=== PATIENT | female | born 1950 | race African-American/Black ===

== ENCOUNTER 2016-12-06 04:38 | Emergency (ER) | payer MEDICAID ==
[~2016-12-06] VITALS: Ht 154.9 cm; Wt 62.0 kg
[~2016-12-06 04:38] MED LIST: AMLO2.5T45 PO; CLON0.1T PO; DIPH25CA83 PO; FAMO40TA35 PO; MONT10TA21 PO; P20 PO; TRIA15OI8 TP
[2016-12-06] MEDS ORDERED: HYDROCODONE/ACETAMINOPHEN 5/325MG TABLET PO ONE (06:30)
[2016-12-06 09:53] VITALS: BP 146/71
== END 2016-12-06 09:53 | disposition home or self-care (01) ==
LOC: ER 04:38
DX: G89.29 Other chronic pain (principal); M25.562 Pain in left knee; I10 Essential (primary) hypertension; M19.90 Unspecified osteoarthritis, unspecified site; I69.354 Hemiplegia and hemiparesis following cerebral infarction affecting left non-dominant side; Z88.0 Allergy status to penicillin; Z88.8 Allergy status to other drugs, medicaments and biological substances
CPT/HCPCS: 73562; 93971; 99284; Z7610

== ENCOUNTER 2017-01-23 08:24 | Emergency (ER) | payer MEDICAID ==
[~2017-01-23] VITALS: Ht 154.9 cm; Wt 59.0 kg
[~2017-01-23 08:24] MED LIST changes: -FAMO40TA35 PO; +FAMO40TA70 PO
[2017-01-23] MEDS ORDERED: ACETAMINOPHEN 325MG TABLET PO ONE (11:15)
[2017-01-23 12:42] LABS: BASOPHILS % 0.6 % (0.0-2.0); EOSINOPHILS % 1.6 % (0.0-5.0); HEMATOCRIT. 40.3 % (36.0-48.0); HEMOGLOBIN. 13.7 g/dL (12.0-16.0); LYMPHOCYTES % 50.3 % (20.0-50.0); MEAN CORPUSCULAR HEMOGLOBIN 33.5 pg (28.0-32.0); MEAN CORPUSCULAR VOLUME 98.6 fL (81.0-99.0); MEAN PLATELET VOLUME 9.5 fl (7.4-10.4); MONOCYTES % 6.3 % (2.0-8.0); NEUTROPHILS % 41.2 % (40.0-76.0); PLATELET 174 x1000/uL (130-400); RED BLOOD CELL COUNT 4.09 mill/uL (4.2-5.4); RED CELL DISTRIBUTION WIDTH 14.4 % (11.6-14.6)
[2017-01-23 12:50] LABS: CARBON DIOXIDE 33 mEq/L (21-32); CHLORIDE 101 mEq/L (98-107)
[2017-01-23] MEDS ORDERED: CLONIDINE 0.2MG TABLET PO ONE (14:00)
[2017-01-23] MEDS ORDERED: POTASSIUM CHLORIDE 20MEQ TABLET SR PO ONE (14:30)
[2017-01-23] MEDS ORDERED: HYDRALAZINE HCL 50MG TABLET PO ONE (15:15)
[2017-01-23 16:08] VITALS: BP 165/89
== END 2017-01-23 16:11 | disposition home or self-care (01) ==
LOC: ER 08:37
DX: M25.562 Pain in left knee (principal); E87.6 Hypokalemia; I10 Essential (primary) hypertension; F17.200 Nicotine dependence, unspecified, uncomplicated; Z86.73 Personal history of transient ischemic attack (TIA), and cerebral infarction without residual deficits; Z88.0 Allergy status to penicillin; Z88.1 Allergy status to other antibiotic agents
CPT/HCPCS: 36415; 70450; 73562; 80048; 85025; 99285; Z7610

== ENCOUNTER 2017-10-27 17:14 | Emergency (ER) | payer MEDICARE, MEDICAID ==
[~2017-10-27] VITALS: Ht 154.9 cm; Wt 59.0 kg
[2017-10-27 23:26] VITALS: BP 158/68
== END 2017-10-27 23:52 | disposition home or self-care (01) ==
LOC: ER 23:22
DX: L03.113 Cellulitis of right upper limb (principal); F41.9 Anxiety disorder, unspecified; K21.9 Gastro-esophageal reflux disease without esophagitis; I11.0 Hypertensive heart disease with heart failure; I50.9 Heart failure, unspecified; F17.200 Nicotine dependence, unspecified, uncomplicated; J32.9 Chronic sinusitis, unspecified; Z88.0 Allergy status to penicillin; Z88.3 Allergy status to other anti-infective agents; Z88.8 Allergy status to other drugs, medicaments and biological substances
CPT/HCPCS: 99283

== ENCOUNTER 2018-04-09 23:39 | Inpatient (IN) | payer OTHER, MEDICAID ==
[~2018-04-09] VITALS: Ht 162.6 cm; Wt 68.5 kg
[2018-04-10] MEDS ORDERED: EPINEPHRINE 1:1000 1 MG/ML AMP INJ ONE (00:15)
[2018-04-10] MEDS ORDERED: SODIUM CHLORIDE 0.9% 1,000 ML IV ONE (00:15)
[2018-04-10] MEDS ORDERED: METHYLPREDNISOLONE SOD SUCC 125 MG/2 ML VIAL IV ONE (00:15)
[2018-04-10] MEDS ORDERED: FAMOTIDINE 20MG/2ML VIAL IV ONE (00:15)
[2018-04-10] MEDS ORDERED: DIPHENHYDRAMINE 50MG CAPSULE PO ONE (00:15)
[2018-04-10 00:48] LABS: HEMATOCRIT 39.9 % (36.0-48.0); HEMOGLOBIN 13.5 g/dL (12.0-16.0); MEAN CORPUSCULAR HEMOGLOBIN 33.8 pg (28.0-32.0); MEAN CORPUSCULAR VOLUME 99.9 fL (81.0-99.0); PLATELET 179 x1000/uL (130-400); RED BLOOD CELL COUNT 3.99 mill/uL (4.2-5.4); RED CELL DISTRIBUTION WIDTH 13.9 % (11.6-14.6)
[2018-04-10 02:14] LABS: CHLORIDE 107 mEq/L (98-107)
[2018-04-10] MEDS ORDERED: POTASSIUM CHLORIDE INJ 40 MEQ in DEXT 5% WATER 250 ML IV ONE (03:00)
[2018-04-10] MEDS ORDERED: KCL 10MEQ/50ML PREMIX 50 ML IV ONE (03:15)
[2018-04-10] MEDS: KCL 10MEQ/50ML PREMIX 50 ML IV SCH ×4 (03:32→06:15)
[2018-04-10] MEDS ORDERED: POTASSIUM CHLORIDE 20MEQ TABLET SR PO ONE (04:45)
[2018-04-10] MEDS ORDERED: TRAMADOL 50MG TABLET PO PRN (12:00)
[2018-04-10 18:36] VITALS: BP 191/94
[2018-04-10] MEDS ORDERED: AMLO5TAB4 PO (18:43)
[2018-04-10] MEDS ORDERED: DIPHENHYDRAMINE 50MG/ML VIAL IV PRN (19:00)
[2018-04-10] MEDS ORDERED: ENOXAPARIN 30MG/0.3ML SYR SUBCUT SCH (19:00)
[2018-04-10] MEDS ORDERED: ASPIRIN 81MG TABLET PO SCH (19:30)
[2018-04-10] MEDS ORDERED: ENOXAPARIN 40MG/0.4ML SYR SUBCUT SCH (20:00)
[2018-04-10 20:13] VITALS: BP 167/82
[2018-04-10] MEDS ORDERED: KCL 20MEQ/100ML PREMIX 100 ML IV NR (21:00)
[2018-04-10] MEDS: METOPROLOL TARTRATE 50MG TABLET PO SCH (21:00)
[2018-04-10] MEDS: ASPIRIN 81MG TABLET PO SCH (21:29)
[2018-04-10] MEDS: PANTOPRAZOLE 40MG DR TABLET PO SCH (21:29)
[2018-04-10] MEDS: HYDRALAZINE HCL 50MG TABLET PO SCH (21:32)
[2018-04-10] MEDS ORDERED: POTASSIUM CHLORIDE 20MEQ TABLET SR PO NR (23:30)
[2018-04-11] VITALS: BP 160/80
[2018-04-11] MEDS: HYDRALAZINE HCL 50MG TABLET PO SCH (00:02)
[2018-04-11] MEDS: METOPROLOL TARTRATE 50MG TABLET PO SCH ×2 (00:32→10:29)
[2018-04-11] MEDS ORDERED: POTASSIUM CHLORIDE 20MEQ TABLET SR PO SCH (02:51)
[2018-04-11 04:00] VITALS: BP 173/90
[2018-04-11 08:00] VITALS: BP 175/88
[2018-04-11 10:03] LABS: BASOPHILS % 0.3 % (0.0-2.0); EOSINOPHILS % 0.6 % (0.0-5.0); HEMATOCRIT. 38.8 % (36.0-48.0); HEMOGLOBIN. 12.9 g/dL (12.0-16.0); LYMPHOCYTES % 37.1 % (20.0-50.0); MEAN CORPUSCULAR HEMOGLOBIN 33.5 pg (28.0-32.0); MEAN CORPUSCULAR VOLUME 100.6 fL (81.0-99.0); MEAN PLATELET VOLUME 9.9 fl (7.4-10.4); MONOCYTES % 5.4 % (2.0-8.0); NEUTROPHILS % 56.6 % (40.0-76.0); PLATELET 189 x1000/uL (130-400); RED BLOOD CELL COUNT 3.85 mill/uL (4.2-5.4)
[2018-04-11 10:26] LABS: CHLORIDE 111 mEq/L (98-107)
[2018-04-11] MEDS: ASPIRIN 81MG TABLET PO SCH (10:29)
[2018-04-11] MEDS: PANTOPRAZOLE 40MG DR TABLET PO SCH (10:29)
[2018-04-11 10:41] LABS: LDL CHOLESTEROL 88 mg/dL (5-100)
[2018-04-11 10:43] LABS: HDL CHOLESTEROL 61 mg/dL (40-59)
[2018-04-11 12:24] VITALS: BP 144/82
[2018-04-11] MEDS ORDERED: HYDRALAZINE HCL 100MG TABLET PO SCH (14:00)
[2018-04-11 14:33] VITALS: BP 144/82
== END 2018-04-11 15:55 | disposition home or self-care (01) | DRG 915 ==
LOC: ER 23:39 → 6WST 04-10 01:41 → ENRESERV 04-10 16:49 → 6WST 04-10 18:08
PROVIDERS: ADMIT Internal Medicine; ATTEND Internal Medicine
DX: T78.3XXA Angioneurotic edema, initial encounter (principal); I50.33 Acute on chronic diastolic (congestive) heart failure; R00.1 Bradycardia, unspecified; E78.00 Pure hypercholesterolemia, unspecified; E78.5 Hyperlipidemia, unspecified; R73.9 Hyperglycemia, unspecified; E87.6 Hypokalemia; I11.0 Hypertensive heart disease with heart failure; Z88.9 Allergy status to unspecified drugs, medicaments and biological substances; Z93.0 Tracheostomy status; Z86.73 Personal history of transient ischemic attack (TIA), and cerebral infarction without residual deficits; Z88.8 Allergy status to other drugs, medicaments and biological substances; Z88.0 Allergy status to penicillin; Z79.899 Other long term (current) drug therapy; R06.03 Acute respiratory distress
CPT/HCPCS: 36415; 80061; 85027; 96361; 96374; 96375; 99291; C1893; J1650; J2930; J3480; J3490; J7030; Q0163

== ENCOUNTER 2018-04-18 23:41 | Emergency (ER) | payer OTHER, MEDICAID ==
[~2018-04-18] VITALS: Ht 154.9 cm; Wt 60.0 kg
[~2018-04-18 23:41] MED LIST changes: -AMLO2.5T45 PO; +AMLO5TAB4 PO; -CLON0.1T PO; -P20 PO
[2018-04-19] MEDS ORDERED: PREDNISONE 20MG TABLET PO ONE (02:15)
[2018-04-19 04:41] VITALS: BP 111/69
== END 2018-04-19 06:48 | disposition home or self-care (01) ==
LOC: ER 23:41
DX: R21 Rash and other nonspecific skin eruption (principal); I10 Essential (primary) hypertension; F17.200 Nicotine dependence, unspecified, uncomplicated; Z93.0 Tracheostomy status; Z88.0 Allergy status to penicillin; Z88.8 Allergy status to other drugs, medicaments and biological substances; Z88.1 Allergy status to other antibiotic agents; Z88.9 Allergy status to unspecified drugs, medicaments and biological substances; Z79.899 Other long term (current) drug therapy
CPT/HCPCS: 99283; J7512

== ENCOUNTER 2018-04-27 23:52 | Emergency (ER) | payer MEDICAID, OTHER ==
[~2018-04-27] VITALS: Ht 154.9 cm; Wt 60.0 kg
[2018-04-28] MEDS ORDERED: FAMOTIDINE 20MG/2ML VIAL IV ONE (00:45)
[2018-04-28] MEDS ORDERED: DIPHENHYDRAMINE 50MG/ML VIAL IV ONE (00:45)
[2018-04-28] MEDS ORDERED: METHYLPREDNISOLONE SOD SUCC 125 MG/2 ML VIAL IV ONE (00:45)
[2018-04-28 03:00] VITALS: BP 177/90
== END 2018-04-28 03:25 | disposition home or self-care (01) ==
LOC: ER 23:52
DX: R22.0 Localized swelling, mass and lump, head (principal); T46.1X5A Adverse effect of calcium-channel blockers, initial encounter; Y92.098 Other place in other non-institutional residence as the place of occurrence of the external cause; I10 Essential (primary) hypertension; Z88.8 Allergy status to other drugs, medicaments and biological substances
CPT/HCPCS: 96374; 96375; 99284; J1200; J2930; J3490

== ENCOUNTER 2018-04-29 13:39 | Inpatient (IN) | payer OTHER, MEDICAID ==
[2018-04-28 21:45] VITALS: BP 117/78
[2018-04-29] VITALS: BP 172/90
[~2018-04-29] VITALS: Ht 162.6 cm; Wt 62.6 kg
[2018-04-29 16:11] LABS: BASOPHILS % 0.3 % (0.0-2.0); HEMATOCRIT. 36.5 % (36.0-48.0); HEMOGLOBIN. 12.2 g/dL (12.0-16.0); LYMPHOCYTES % 10.5 % (20.0-50.0); MEAN CORPUSCULAR HEMOGLOBIN 33.4 pg (28.0-32.0); MEAN CORPUSCULAR VOLUME 99.7 fL (81.0-99.0); MONOCYTES % 3.5 % (2.0-8.0); NEUTROPHILS % 85.7 % (40.0-76.0); PLATELET 280 x1000/uL (130-400); RED BLOOD CELL COUNT 3.66 mill/uL (4.2-5.4); RED CELL DISTRIBUTION WIDTH 13.6 % (11.6-14.6)
[2018-04-29 16:14] LABS: CHLORIDE 101 mEq/L (98-107)
[2018-04-29 16:19] LABS: PROTHROMBIN TIME 10.2 sec (9.1-11.1)
[2018-04-29 16:20] LABS: ETHANOL BLOOD < 10 mg/dL
[2018-04-29] MEDS ORDERED: ASPIRIN 325MG TABLET PO ONE (17:30)
[2018-04-29] MEDS ORDERED: GUAIFENESIN 200MG/10ML SUGAR FREE UDC PO PRN (20:00)
[2018-04-29] MEDS ORDERED: ONDANSETRON HCL 4MG/2ML INJ IV PRN (20:00)
[2018-04-29] MEDS ORDERED: MAGNESIUM/ALUMINUM HYDROXIDE/SIMETHICONE 30ML UDC PO PRN (20:00)
[2018-04-29] MEDS ORDERED: ACETAMINOPHEN 325MG TABLET PO PRN (20:00)
[2018-04-29] MEDS ORDERED: ACETAMINOPHEN 650MG SUPP PR PRN (20:00)
[2018-04-29] MEDS ORDERED: NA PHOS,M-B/NA PHOS,DI-BA ENEMA 118ML PR PRN (20:00)
[2018-04-29] MEDS ORDERED: DIPHENHYDRAMINE 50MG/ML VIAL IV PRN (20:00)
[2018-04-29] MEDS ORDERED: LORAZEPAM 1MG TABLET PO PRN (20:00)
[2018-04-29] MEDS ORDERED: IPRATROPIUM/ALBUTEROL 0.5-3(2.5)MG/3ML NEB INH PRN (20:00)
[2018-04-29 22:00] VITALS: BP 117/78
[2018-04-29] MEDS: NICOTINE 21MG PATCH TD SCH (23:45)
[2018-04-29] MEDS: AMLODIPINE 5MG TABLET PO SCH (23:45)
[2018-04-29] MEDS: ENOXAPARIN 40MG/0.4ML SYR SUBCUT SCH (23:45)
[2018-04-30 04:00] VITALS: BP 172/85
[2018-04-30] MEDS: CLONIDINE 0.1MG TABLET PO PRN (05:37)
[2018-04-30 07:49] LABS: BASOPHILS % 0.2 % (0.0-2.0); EOSINOPHILS % 0.5 % (0.0-5.0); HEMATOCRIT. 34.6 % (36.0-48.0); HEMOGLOBIN. 11.7 g/dL (12.0-16.0); MEAN CORPUSCULAR HEMOGLOBIN 33.7 pg (28.0-32.0); MEAN CORPUSCULAR VOLUME 99.5 fL (81.0-99.0); MEAN PLATELET VOLUME 8.8 fl (7.4-10.4); MONOCYTES % 7.9 % (2.0-8.0); NEUTROPHILS % 52.4 % (40.0-76.0); PLATELET 266 x1000/uL (130-400); RED BLOOD CELL COUNT 3.48 mill/uL (4.2-5.4); RED CELL DISTRIBUTION WIDTH 13.9 % (11.6-14.6)
[2018-04-30 08:00] VITALS: BP 158/85
[2018-04-30] MEDS: DOCUSATE SODIUM 100MG CAPSULE PO PRN (09:11)
[2018-04-30] MEDS: AMLODIPINE 5MG TABLET PO SCH (09:11)
[2018-04-30] MEDS: ASPIRIN 81MG EC TABLET PO SCH (09:11)
[2018-04-30] MEDS: NICOTINE 21MG PATCH TD SCH (09:12)
[2018-04-30 11:15] LABS: CHLORIDE 103 mEq/L (98-107)
[2018-04-30 12:00] VITALS: BP 113/74
[2018-04-30 16:00] VITALS: BP 150/74
[2018-04-30] MEDS ORDERED: LOSARTAN POTASSIUM 50 MG TABLET PO SCH (18:45)
[2018-04-30 20:00] VITALS: BP 186/78
[2018-04-30] MEDS: HYDRALAZINE HCL 50MG TABLET PO SCH (20:32)
[2018-04-30] MEDS: ENOXAPARIN 40MG/0.4ML SYR SUBCUT SCH (20:32)
[2018-04-30] MEDS: ATORVASTATIN CALCIUM 20MG TABLET PO SCH (20:32)
[2018-05-01] VITALS: BP 161/84
[2018-05-01] MEDS: CLONIDINE 0.1MG TABLET PO PRN (00:45)
[2018-05-01 04:00] VITALS: BP 140/77
[2018-05-01 05:59] LABS: *BARBITURATES SCREEN URINE NEGATIVE (NEGATIVE); CANNABINOID URINE SCREEN NEGATIVE (NEGATIVE); OPIATES URINE SCREEN PRESUMTIVE POSITIVE (NEGATIVE); PHENCYCLIDINE URINE SCREEN NEGATIVE (NEGATIVE)
[2018-05-01 06:00] LABS: *AMPHETAMINES SCREEN URINE NEGATIVE (NEGATIVE); *BENZODIAZEPINES SCREEN URINE NEGATIVE (NEGATIVE); *COCAINE SCREEN URINE NEGATIVE (NEGATIVE)
[2018-05-01 06:28] LABS: METHADONE URINE SCREEN PRESUMTIVE POSITIVE (NEGATIVE)
[2018-05-01 08:00] VITALS: BP 156/87
[2018-05-01] MEDS: ASPIRIN 81MG EC TABLET PO SCH (09:26)
[2018-05-01] MEDS: NICOTINE 21MG PATCH TD SCH (09:27)
[2018-05-01] MEDS: AMLODIPINE 5MG TABLET PO SCH (09:27)
[2018-05-01] MEDS: HYDRALAZINE HCL 50MG TABLET PO SCH ×2 (09:28→21:21)
[2018-05-01] MEDS: DOCUSATE SODIUM 100MG CAPSULE PO PRN (09:29)
[2018-05-01] MEDS: HYDROCODONE/ACETAMINOPHEN 5/325MG TABLET PO PRN ×2 (09:45→21:20)
[2018-05-01 12:00] VITALS: BP 139/70
[2018-05-01 16:00] VITALS: BP 146/68
[2018-05-01 20:00] VITALS: BP 132/85
[2018-05-01] MEDS: ATORVASTATIN CALCIUM 20MG TABLET PO SCH (21:21)
[2018-05-01] MEDS: ENOXAPARIN 40MG/0.4ML SYR SUBCUT SCH (21:21)
[2018-05-02] VITALS: BP 157/77
[2018-05-02] MEDS ORDERED: POTASSIUM CHLORIDE 10MEQ TABLET SR PO NR (01:30)
[2018-05-02 04:00] VITALS: BP 166/89
[2018-05-02] MEDS: CLONIDINE 0.1MG TABLET PO PRN (06:31)
[2018-05-02 06:47] LABS: CHLORIDE 106 mEq/L (98-107)
[2018-05-02 08:00] VITALS: BP 149/77
[2018-05-02] MEDS: HYDRALAZINE HCL 50MG TABLET PO SCH (10:20)
[2018-05-02] MEDS: DOCUSATE SODIUM 100MG CAPSULE PO PRN (10:21)
[2018-05-02] MEDS: ASPIRIN 81MG EC TABLET PO SCH (10:21)
[2018-05-02] MEDS: AMLODIPINE 5MG TABLET PO SCH (10:22)
[2018-05-02] MEDS: NICOTINE 21MG PATCH TD SCH (10:22)
[2018-05-02 12:32] VITALS: BP 162/85
[2018-05-02] MEDS ORDERED: METHADONE HCL 10MG TABLET PO SCH (15:30)
== END 2018-05-02 15:50 | disposition left against medical advice (07) | DRG 64 ==
LOC: ER 13:39 → 7WST 17:43 → EDBEDREQ 17:46 → SUPCPDRO 19:49 → ENRESERV 20:00
PROVIDERS: ADMIT Internal Medicine; ATTEND Internal Medicine
DX: I63.81 Other cerebral infarction due to occlusion or stenosis of small artery (principal); I50.33 Acute on chronic diastolic (congestive) heart failure; I69.354 Hemiplegia and hemiparesis following cerebral infarction affecting left non-dominant side; E78.00 Pure hypercholesterolemia, unspecified; E78.5 Hyperlipidemia, unspecified; F17.210 Nicotine dependence, cigarettes, uncomplicated; I11.0 Hypertensive heart disease with heart failure; I16.0 Hypertensive urgency; I65.21 Occlusion and stenosis of right carotid artery; Z53.21 Procedure and treatment not carried out due to patient leaving prior to being seen by health care provider; Z88.8 Allergy status to other drugs, medicaments and biological substances; Z88.0 Allergy status to penicillin
CPT/HCPCS: 36415; 70551; 71045; 73560; 73590; 80061; 80305; 82962; 84484; 92610; 93005; 93880; 93970; 97116; 97162; 99285; G0482; J1650; A4315

== ENCOUNTER 2018-05-02 18:17 | Inpatient (IN) | payer OTHER, MEDICAID ==
[~2018-05-02] VITALS: Ht 193 cm; Wt 61.2 kg
[~2018-05-02 18:17] MED LIST changes: +ETOMIDATE 2MG/ML 10ML VIAL IV ONE; +SUCCINYLCHOLINE CHLORIDE 200MG/10ML IV ONE
[2018-05-02] MEDS ORDERED: SODIUM CHLORIDE 0.9% 1,000 ML IV SCH (18:24)
[2018-05-02] MEDS ORDERED: SUCCINYLCHOLINE CHLORIDE 200MG/10ML IV ONE (18:30)
[2018-05-02] MEDS ORDERED: ETOMIDATE 2MG/ML 10ML VIAL IV ONE ×2 (18:30)
[2018-05-02] MEDS ORDERED: DIPHENHYDRAMINE 50MG CAPSULE PO ONE (18:30)
[2018-05-02] MEDS ORDERED: LORAZEPAM 2MG/ML CPJ IV ONE ×3 (18:30→19:45)
[2018-05-02] MEDS ORDERED: FAMOTIDINE 20MG/2ML VIAL IV ONE (18:30)
[2018-05-02] MEDS ORDERED: METHYLPREDNISOLONE SOD SUCC 125 MG/2 ML VIAL IV ONE (18:30)
[2018-05-02] MEDS ORDERED: PROPOFOL 10MG/ML 100ML 100 ML IV ONE ×3 (18:30→22:30)
[2018-05-02] MEDS ORDERED: LORAZEPAM 2MG/ML CPJ ONE (19:02)
[2018-05-02] MEDS ORDERED: MIDAZOLAM HCL 50 MG in DEXTROSE 5% WATER 40 ML IV ONE (19:45)
[2018-05-02 20:13] LABS: BG BASE EXCESS 1.5 mmol/L (-2.0-2.0); BG CARBOXYHEMOGLOBIN 2.4 % (0.5-1.5); BG DEOXYHEMOGLOBIN 5.7 % (0.0-5.0); BG FRACTION INSPIRED OXYGEN 40; BG HCO3 ACT 24.1 mmol/L (22.0-26.0); BG METHEMOGLOBIN 0.5 % (0.0-1.5); BG OXYGEN SATURATION 94.1 % (92.0-98.5); BG OXYHEMOGLOBIN 91.4 % (94.0-97.0); BG PCO2 32.3 mmHg (35.0-45.0); BG PH 7.491 (7.350-7.450); BG PO2 72.7 mmHg (75.0-100.0); BG SAMPLE SITE LEFT BRACHIAL; BG TIDAL VOLUME(mL) 500 mL; BG TOTAL HEMOGLOBIN 13.9 g/dL (12.0-18.0); BG VENT MODE VENT - A/C; BG VENT RATE 16 set
[2018-05-02 21:01] LABS: BASOPHILS % 0.1 % (0.0-2.0); EOSINOPHILS % 0.3 % (0.0-5.0); HEMATOCRIT. 38.2 % (36.0-48.0); HEMOGLOBIN. 12.7 g/dL (12.0-16.0); LYMPHOCYTES % 9.2 % (20.0-50.0); MEAN CORPUSCULAR HEMOGLOBIN 33.1 pg (28.0-32.0); MEAN CORPUSCULAR VOLUME 99.5 fL (81.0-99.0); MEAN PLATELET VOLUME 8.5 fl (7.4-10.4); MONOCYTES % 3.3 % (2.0-8.0); NEUTROPHILS % 87.1 % (40.0-76.0); PLATELET 265 x1000/uL (130-400); RED BLOOD CELL COUNT 3.84 mill/uL (4.2-5.4); RED CELL DISTRIBUTION WIDTH 13.9 % (11.6-14.6)
[2018-05-02 21:05] LABS: CHLORIDE 103 mEq/L (98-107)
[2018-05-02 21:08] LABS: CLARITY URINE CLEAR (CLEAR); COLOR URINE YELLOW (YELLOW); KETONES URINE NEGATIVE (NEGATIVE); LEUKOCYTE ESTERASE URINE NEGATIVE (NEGATIVE); NITRITE URINE NEGATIVE (NEGATIVE); OCCULT BLOOD URINE NEGATIVE (NEGATIVE); PH URINE 7.5 (4.5-8.0); PROTEIN URINE 1+ (NEGATIVE); SPECIFIC GRAVITY URINE 1.019 (1.005-1.030); UROBILINOGEN URINE 0.2 E.U./dL (0.2-1.0)
[2018-05-02 21:08] LABS: D-DIMER 2.81 mg/L FEU (<0.50); PROTHROMBIN TIME 10.4 sec (9.1-11.1)
[2018-05-02] MEDS ORDERED: SODIUM CHLORIDE 0.9% 1,000 ML IV ONE (21:28)
[2018-05-02] MEDS ORDERED: DIPHENHYDRAMINE 50MG/ML VIAL IV ONE (21:30)
[2018-05-03] VITALS (76 sets, daily range): BP systolic 100–190; BP diastolic 62–107
[2018-05-03] MEDS ORDERED: LORAZEPAM 2MG/ML CPJ IV PRN (03:45)
[2018-05-03] MEDS ORDERED: DIPHENHYDRAMINE 50MG CAPSULE PO SCH (03:45)
[2018-05-03] MEDS ORDERED: LEVOFLOXACIN 500MG PREMIX 100 ML IV SCH (03:45)
[2018-05-03] MEDS ORDERED: IPRATROPIUM/ALBUTEROL 0.5-3(2.5)MG/3ML NEB INH PRN (03:45)
[2018-05-03] MEDS ORDERED: ACETAMINOPHEN 325MG TABLET PO PRN (03:45)
[2018-05-03] MEDS: DIPHENHYDRAMINE 25MG CAPSULE PO SCH ×4 (04:22→21:28)
[2018-05-03] MEDS: AMLODIPINE 10MG TABLET PO SCH ×2 (04:50→09:32)
[2018-05-03] MEDS: LEVOFLOXACIN 500MG PREMIX 100 ML IV SCH (06:00)
[2018-05-03] MEDS: DEXT 5%/0.45% NACL KCL 20MEQ/L 1,000 ML IV SCH ×2 (06:00→13:51)
[2018-05-03] MEDS: METHYLPREDNISOLONE SOD SUCC 125 MG/2 ML VIAL IV SCH ×3 (06:00→21:28)
[2018-05-03 06:56] LABS: BASOPHILS % 0.4 % (0.0-2.0); EOSINOPHILS % 0.1 % (0.0-5.0); HEMATOCRIT. 38.4 % (36.0-48.0); HEMOGLOBIN. 12.8 g/dL (12.0-16.0); LYMPHOCYTES % 10.4 % (20.0-50.0); MEAN CORPUSCULAR HEMOGLOBIN 33.4 pg (28.0-32.0); MEAN CORPUSCULAR VOLUME 100.5 fL (81.0-99.0); MONOCYTES % 3.7 % (2.0-8.0); NEUTROPHILS % 85.4 % (40.0-76.0); RED BLOOD CELL COUNT 3.82 mill/uL (4.2-5.4); RED CELL DISTRIBUTION WIDTH 13.7 % (11.6-14.6)
[2018-05-03] MEDS: SODIUM CHLORIDE 0.9% INJ 3ML FLUSH IVF SCH ×3 (07:00→21:28)
[2018-05-03 07:39] LABS: CHLORIDE 107 mEq/L (98-107)
[2018-05-03 08:10] LABS: BG BASE EXCESS -0.1 mmol/L (-2.0-2.0); BG DEOXYHEMOGLOBIN 0.9 % (0.0-5.0); BG FRACTION INSPIRED OXYGEN 60; BG OXYGEN SATURATION 99.1 % (92.0-98.5); BG OXYHEMOGLOBIN 98.1 % (94.0-97.0); BG PCO2 37.3 mmHg (35.0-45.0); BG PH 7.426 (7.350-7.450); BG PO2 223.3 mmHg (75.0-100.0); BG SAMPLE SITE RIGHT RADIAL; BG TIDAL VOLUME(mL) 500 mL; BG TOTAL HEMOGLOBIN 12.7 g/dL (12.0-18.0); BG VENT MODE VENT - A/C; BG VENT RATE 12 set
[2018-05-03] MEDS: PROPOFOL 10MG/ML 100ML 100 ML IV PRN ×3 (09:32→21:27)
[2018-05-03] MEDS: FAMOTIDINE 20MG/2ML VIAL IV SCH ×2 (09:32→21:28)
[2018-05-03] MEDS: ENOXAPARIN 40MG/0.4ML SYR SUBCUT SCH (09:45)
[2018-05-03 12:27] LABS: MEAN PLATELET VOLUME 9.7 fl (7.4-10.4); PLATELET 212 x1000/uL (130-400)
[2018-05-03] MEDS ORDERED: CLONIDINE 0.1MG TABLET PO PRN (13:00)
[2018-05-03] MEDS: HYDRALAZINE 20MG/ML VIAL IV PRN ×2 (14:19→22:01)
[2018-05-03] MEDS ORDERED: DEXTROSE 50% WATER 50ML SYRINGE IV PRN (14:30)
[2018-05-03 15:35] LABS: *AMPHETAMINES SCREEN URINE NEGATIVE (NEGATIVE); *BARBITURATES SCREEN URINE NEGATIVE (NEGATIVE)
[2018-05-03 15:36] LABS: *BENZODIAZEPINES SCREEN URINE PRESUMTIVE POSITIVE (NEGATIVE); *COCAINE SCREEN URINE NEGATIVE (NEGATIVE); CANNABINOID URINE SCREEN NEGATIVE (NEGATIVE); OPIATES URINE SCREEN PRESUMTIVE POSITIVE (NEGATIVE); PHENCYCLIDINE URINE SCREEN NEGATIVE (NEGATIVE)
[2018-05-03 15:39] LABS: METHADONE URINE SCREEN PRESUMTIVE POSITIVE (NEGATIVE)
[2018-05-03] MEDS: ASPIRIN 81MG TABLET PO SCH (16:28)
[2018-05-03] MEDS: MONTELUKAST SODIUM 10MG TABLET PO SCH (16:29)
[2018-05-03] MEDS: BLOOD SUGAR DIAGNOSTIC STRIP TEST SCH ×2 (17:36→17:50)
[2018-05-03] MEDS: INSULIN LISPRO 100 UNITS/ML SUBCUT SCH ×2 (17:46→17:49)
[2018-05-03] MEDS: IPRATROPIUM/ALBUTEROL 0.5-3(2.5)MG/3ML NEB HHN SCH (20:00)
[2018-05-03] MEDS: ATORVASTATIN CALCIUM 10MG TABLET PO SCH (21:00)
[2018-05-04] VITALS (84 sets, daily range): BP systolic 87–154; BP diastolic 52–105
[2018-05-04] MEDS: BLOOD SUGAR DIAGNOSTIC STRIP TEST SCH ×4 (00:30→18:35)
[2018-05-04] MEDS: IPRATROPIUM/ALBUTEROL 0.5-3(2.5)MG/3ML NEB HHN SCH ×4 (01:38→19:55)
[2018-05-04] MEDS: PROPOFOL 10MG/ML 100ML 100 ML IV PRN ×4 (03:14→19:31)
[2018-05-04] MEDS: DIPHENHYDRAMINE 25MG CAPSULE PO SCH ×4 (04:21→20:52)
[2018-05-04 05:37] LABS: CHLORIDE 109 mEq/L (98-107); HEMATOCRIT 37.2 % (36.0-48.0); HEMOGLOBIN 12.4 g/dL (12.0-16.0); MEAN CORPUSCULAR HEMOGLOBIN 33.7 pg (28.0-32.0); PLATELET 219 x1000/uL (130-400); RED BLOOD CELL COUNT 3.69 mill/uL (4.2-5.4); RED CELL DISTRIBUTION WIDTH 14.1 % (11.6-14.6)
[2018-05-04] MEDS: INSULIN LISPRO 100 UNITS/ML SUBCUT SCH ×4 (06:00→18:00)
[2018-05-04] MEDS: METHYLPREDNISOLONE SOD SUCC 125 MG/2 ML VIAL IV SCH ×3 (06:04→20:52)
[2018-05-04] MEDS: LEVOFLOXACIN 500MG PREMIX 100 ML IV SCH (06:04)
[2018-05-04] MEDS: SODIUM CHLORIDE 0.9% INJ 3ML FLUSH IVF SCH ×3 (06:05→20:53)
[2018-05-04] MEDS: ENOXAPARIN 40MG/0.4ML SYR SUBCUT SCH (09:00)
[2018-05-04] MEDS: AMLODIPINE 10MG TABLET PO SCH (09:00)
[2018-05-04] MEDS: FAMOTIDINE 20MG/2ML VIAL IV SCH ×2 (09:05→20:52)
[2018-05-04] MEDS: ASPIRIN 81MG TABLET PO SCH (09:05)
[2018-05-04 09:17] LABS: BG BASE EXCESS -3.2 mmol/L (-2.0-2.0); BG CARBOXYHEMOGLOBIN 0.6 % (0.5-1.5); BG DEOXYHEMOGLOBIN 1.4 % (0.0-5.0); BG FRACTION INSPIRED OXYGEN 40; BG HCO3 ACT 19.8 mmol/L (22.0-26.0); BG METHEMOGLOBIN 0.3 % (0.0-1.5); BG OXYGEN SATURATION 98.6 % (92.0-98.5); BG OXYHEMOGLOBIN 97.7 % (94.0-97.0); BG PCO2 29.5 mmHg (35.0-45.0); BG PH 7.444 (7.350-7.450); BG PO2 125.3 mmHg (75.0-100.0); BG SAMPLE SITE RIGHT RADIAL; BG TIDAL VOLUME(mL) 500 mL; BG VENT MODE VENT - A/C; BG VENT RATE 12 set
[2018-05-04] MEDS: SODIUM CHLORIDE 0.45% 1,000 ML IV SCH (16:58)
[2018-05-04] MEDS: MONTELUKAST SODIUM 10MG TABLET PO SCH (16:58)
[2018-05-04] MEDS ORDERED: LORAZEPAM 2MG/ML CPJ IV PRN (19:45)
[2018-05-04] MEDS: ATORVASTATIN CALCIUM 10MG TABLET PO SCH (20:52)
[2018-05-05] VITALS (56 sets, daily range): BP systolic 99–182; BP diastolic 57–92
[2018-05-05] MEDS: IPRATROPIUM/ALBUTEROL 0.5-3(2.5)MG/3ML NEB HHN SCH ×4 (01:58→20:19)
[2018-05-05] MEDS: PROPOFOL 10MG/ML 100ML 100 ML IV PRN (03:18)
[2018-05-05] MEDS: DIPHENHYDRAMINE 25MG CAPSULE PO SCH ×4 (03:19→21:05)
[2018-05-05 05:23] LABS: HEMATOCRIT 37.4 % (36.0-48.0); HEMOGLOBIN 12.5 g/dL (12.0-16.0); MEAN CORPUSCULAR HEMOGLOBIN 33.4 pg (28.0-32.0); PLATELET 215 x1000/uL (130-400); RED BLOOD CELL COUNT 3.74 mill/uL (4.2-5.4)
[2018-05-05 05:24] LABS: CHLORIDE 108 mEq/L (98-107)
[2018-05-05] MEDS: SODIUM CHLORIDE 0.9% INJ 3ML FLUSH IVF SCH ×3 (05:44→21:11)
[2018-05-05] MEDS: INSULIN LISPRO 100 UNITS/ML SUBCUT SCH ×5 (05:56→23:35)
[2018-05-05] MEDS: BLOOD SUGAR DIAGNOSTIC STRIP TEST SCH ×5 (05:56→23:34)
[2018-05-05] MEDS: LEVOFLOXACIN 500MG PREMIX 100 ML IV SCH (05:57)
[2018-05-05] MEDS: METHYLPREDNISOLONE SOD SUCC 125 MG/2 ML VIAL IV SCH ×3 (05:57→23:33)
[2018-05-05 08:41] LABS: BG BASE EXCESS -2.9 mmol/L (-2.0-2.0); BG CARBOXYHEMOGLOBIN 0.6 % (0.5-1.5); BG FRACTION INSPIRED OXYGEN 35; BG HCO3 ACT 19.7 mmol/L (22.0-26.0); BG METHEMOGLOBIN 0.2 % (0.0-1.5); BG OXYHEMOGLOBIN 95.2 % (94.0-97.0); BG PCO2 28.5 mmHg (35.0-45.0); BG PH 7.457 (7.350-7.450); BG PO2 80.4 mmHg (75.0-100.0); BG SAMPLE SITE RIGHT RADIAL; BG TIDAL VOLUME(mL) 500 mL; BG TOTAL HEMOGLOBIN 13.9 g/dL (12.0-18.0); BG VENT MODE VENT - A/C; BG VENT RATE 12 set
[2018-05-05] MEDS: AMLODIPINE 10MG TABLET PO SCH (08:55)
[2018-05-05] MEDS: ASPIRIN 81MG TABLET PO SCH (08:55)
[2018-05-05] MEDS: FAMOTIDINE 20MG/2ML VIAL IV SCH ×2 (08:55→21:04)
[2018-05-05] MEDS: ENOXAPARIN 40MG/0.4ML SYR SUBCUT SCH (08:56)
[2018-05-05] MEDS: HYDROMORPHONE HCL/PF 2MG/ML CPJ IV PRN ×2 (11:12→13:38)
[2018-05-05 12:13] LABS: BG BASE EXCESS -1.8 mmol/L (-2.0-2.0); BG CARBOXYHEMOGLOBIN 0.4 % (0.5-1.5); BG DEOXYHEMOGLOBIN 4.2 % (0.0-5.0); BG FRACTION INSPIRED OXYGEN 35; BG HCO3 ACT 21.2 mmol/L (22.0-26.0); BG METHEMOGLOBIN 0.3 % (0.0-1.5); BG OXYGEN SATURATION 95.8 % (92.0-98.5); BG OXYHEMOGLOBIN 95.1 % (94.0-97.0); BG PCO2 30.9 mmHg (35.0-45.0); BG PH 7.454 (7.350-7.450); BG PO2 80.9 mmHg (75.0-100.0); BG PRESSURE SUPPORT 8; BG SAMPLE SITE RIGHT RADIAL; BG TOTAL HEMOGLOBIN 13.3 g/dL (12.0-18.0); BG VENT MODE VENT - CPAP
[2018-05-05] MEDS: SODIUM CHLORIDE 0.45% 1,000 ML IV SCH (13:38)
[2018-05-05] MEDS: MONTELUKAST SODIUM 10MG TABLET PO SCH (16:05)
[2018-05-05] MEDS: ATORVASTATIN CALCIUM 10MG TABLET PO SCH (21:04)
[2018-05-06] VITALS (53 sets, daily range): BP systolic 133–180; BP diastolic 70–108
[2018-05-06] MEDS: IPRATROPIUM/ALBUTEROL 0.5-3(2.5)MG/3ML NEB HHN SCH ×3 (01:55→14:00)
[2018-05-06] MEDS: DIPHENHYDRAMINE 25MG CAPSULE PO SCH ×2 (04:15→09:52)
[2018-05-06 04:36] LABS: HEMATOCRIT 42.2 % (36.0-48.0); MEAN CORPUSCULAR VOLUME 99.8 fL (81.0-99.0); PLATELET 205 x1000/uL (130-400); RED BLOOD CELL COUNT 4.23 mill/uL (4.2-5.4); RED CELL DISTRIBUTION WIDTH 13.9 % (11.6-14.6)
[2018-05-06 04:51] LABS: CHLORIDE 106 mEq/L (98-107)
[2018-05-06] MEDS: METHYLPREDNISOLONE SOD SUCC 125 MG/2 ML VIAL IV SCH (05:39)
[2018-05-06] MEDS: BLOOD SUGAR DIAGNOSTIC STRIP TEST SCH ×2 (05:39→11:41)
[2018-05-06] MEDS: LEVOFLOXACIN 500MG PREMIX 100 ML IV SCH (05:39)
[2018-05-06] MEDS: SODIUM CHLORIDE 0.9% INJ 3ML FLUSH IVF SCH (05:39)
[2018-05-06] MEDS: INSULIN LISPRO 100 UNITS/ML SUBCUT SCH ×2 (05:40→11:51)
[2018-05-06] MEDS: ASPIRIN 81MG TABLET PO SCH (08:12)
[2018-05-06] MEDS: AMLODIPINE 10MG TABLET PO SCH (08:13)
[2018-05-06] MEDS: ENOXAPARIN 40MG/0.4ML SYR SUBCUT SCH (08:13)
[2018-05-06] MEDS: FAMOTIDINE 20MG/2ML VIAL IV SCH (08:13)
[2018-05-06 08:38] LABS: BG CARBOXYHEMOGLOBIN 0.6 % (0.5-1.5); BG DEOXYHEMOGLOBIN 3.9 % (0.0-5.0); BG FRACTION INSPIRED OXYGEN 32; BG HCO3 ACT 20.9 mmol/L (22.0-26.0); BG METHEMOGLOBIN 0.2 % (0.0-1.5); BG OXYGEN SATURATION 96.1 % (92.0-98.5); BG OXYHEMOGLOBIN 95.3 % (94.0-97.0); BG PCO2 30.8 mmHg (35.0-45.0); BG PO2 84.1 mmHg (75.0-100.0); BG SAMPLE SITE RIGHT RADIAL; BG TOTAL HEMOGLOBIN 13.9 g/dL (12.0-18.0); BG VENT MODE NASAL CANNULA
[2018-05-06] MEDS ORDERED: HYDROMORPHONE HCL/PF 2MG/ML CPJ IV PRN (11:45)
[2018-05-06] MEDS ORDERED: LORAZEPAM 2MG/ML CPJ IV PRN (11:45)
[2018-05-06] MEDS: MONTELUKAST SODIUM 10MG TABLET PO SCH (17:28)
[2018-05-06] MEDS ORDERED: METHYLPREDNISOLONE SOD SUCC 40 MG/ML VIAL IV SCH (18:00)
[2018-05-06] MEDS ORDERED: DIPHENHYDRAMINE 25MG CAPSULE PO SCH (22:00)
== END 2018-05-06 18:10 | disposition home or self-care (01) | DRG 208 ==
LOC: ER 18:17 → MICUSO 19:15 → ENRESERV 05-03 01:01 → 7WST 05-06 13:57
PROVIDERS: ADMIT Internal Medicine; ATTEND Internal Medicine
PROC: 5A1945Z Respiratory Ventilation, 24-96 Consecutive Hours (ICD-10-PCS; principal; 2018-05-02)
PROC: 0BH17EZ Insertion of Endotracheal Airway into Trachea, Via Natural or Artificial Opening (ICD-10-PCS; 2018-05-02)
PROC: 30233L1 Transfusion of Nonautologous Fresh Plasma into Peripheral Vein, Percutaneous Approach (ICD-10-PCS; 2018-05-03)
PROC: 30233K1 Transfusion of Nonautologous Frozen Plasma into Peripheral Vein, Percutaneous Approach (ICD-10-PCS; 2018-05-03)
DX: J96.00 Acute respiratory failure, unspecified whether with hypoxia or hypercapnia (principal); I50.33 Acute on chronic diastolic (congestive) heart failure; J18.9 Pneumonia, unspecified organism; I69.354 Hemiplegia and hemiparesis following cerebral infarction affecting left non-dominant side; T78.3XXA Angioneurotic edema, initial encounter; E78.5 Hyperlipidemia, unspecified; E78.00 Pure hypercholesterolemia, unspecified; F11.90 Opioid use, unspecified, uncomplicated; R73.9 Hyperglycemia, unspecified; T44.5X5A Adverse effect of predominantly beta-adrenoreceptor agonists, initial encounter; F17.200 Nicotine dependence, unspecified, uncomplicated; I11.0 Hypertensive heart disease with heart failure; T38.0X5A Adverse effect of glucocorticoids and synthetic analogues, initial encounter; Z91.19 Patient's noncompliance with other medical treatment and regimen; Y92.89 Other specified places as the place of occurrence of the external cause
CPT/HCPCS: 31500; 36415; 36430; 36556; 36600; 71045; 80048; 80305; 82375; 82805; 82962; 84478; 84484; 85027; 85379; 86850; 86900; 86927; 87070; 93005; 94002; 94003; 94640; 97162; 99291; J0330; J0360; J1170; J1200; J1650; J1815; J1956; J2060; J2250; J2704; J2920; J2930; J3490; J7030; J7050; J7060; J7620; P9017; Q0163; A4315

== ENCOUNTER 2018-05-23 14:14 | Inpatient (IN) | payer OTHER, MEDICAID ==
[~2018-05-23] VITALS: Ht 154.9 cm; Wt 57.6 kg
[~2018-05-23 14:14] MED LIST changes: -ETOMIDATE 2MG/ML 10ML VIAL IV ONE; -SUCCINYLCHOLINE CHLORIDE 200MG/10ML IV ONE
[2018-05-23 16:58] LABS: BASOPHILS % 0.2 % (0.0-2.0); EOSINOPHILS % 0.8 % (0.0-5.0); HEMATOCRIT. 34.3 % (36.0-48.0); HEMOGLOBIN. 11.3 g/dL (12.0-16.0); LYMPHOCYTES % 9.4 % (20.0-50.0); MEAN CORPUSCULAR HEMOGLOBIN 32.1 pg (28.0-32.0); MEAN CORPUSCULAR VOLUME 97.2 fL (81.0-99.0); MEAN PLATELET VOLUME 10.2 fl (7.4-10.4); MONOCYTES % 1.4 % (2.0-8.0); NEUTROPHILS % 88.2 % (40.0-76.0); PLATELET 222 x1000/uL (130-400); RED BLOOD CELL COUNT 3.53 mill/uL (4.2-5.4); RED CELL DISTRIBUTION WIDTH 14.7 % (11.6-14.6)
[2018-05-23 17:03] LABS: CHLORIDE 106 mEq/L (98-107)
[2018-05-23 17:12] LABS: CLARITY URINE CLEAR (CLEAR); COLOR URINE YELLOW (YELLOW); KETONES URINE NEGATIVE (NEGATIVE); LEUKOCYTE ESTERASE URINE NEGATIVE (NEGATIVE); NITRITE URINE NEGATIVE (NEGATIVE); OCCULT BLOOD URINE NEGATIVE (NEGATIVE); PH URINE 5.5 (4.5-8.0); PROTEIN URINE 1+ (NEGATIVE); SPECIFIC GRAVITY URINE 1.019 (1.005-1.030); UROBILINOGEN URINE 0.2 E.U./dL (0.2-1.0)
[2018-05-23] MEDS ORDERED: POTASSIUM CHLORIDE 20MEQ TABLET SR PO ONE (17:30)
[2018-05-23 17:44] LABS: *BARBITURATES SCREEN URINE NEGATIVE (NEGATIVE); *BENZODIAZEPINES SCREEN URINE NEGATIVE (NEGATIVE)
[2018-05-23 17:45] LABS: *AMPHETAMINES SCREEN URINE NEGATIVE (NEGATIVE); CANNABINOID URINE SCREEN NEGATIVE (NEGATIVE); OPIATES URINE SCREEN PRESUMTIVE POSITIVE (NEGATIVE); PHENCYCLIDINE URINE SCREEN NEGATIVE (NEGATIVE)
[2018-05-23 17:57] LABS: *COCAINE SCREEN URINE NEGATIVE (NEGATIVE)
[2018-05-23 18:31] LABS: METHADONE URINE SCREEN PRESUMTIVE POSITIVE (NEGATIVE)
[2018-05-23] MEDS ORDERED: MORPHINE SULFATE 4 MG/ML CPJ (NOT FOR IM USE) IV ONE (19:00)
[2018-05-24] VITALS (9 sets, daily range): BP systolic 110–165; BP diastolic 58–97
[2018-05-24] MEDS: HYDROCODONE/ACETAMINOPHEN 10/325MG TABLET PO PRN ×3 (02:33→17:12)
[2018-05-24] MEDS ORDERED: DIPHENHYDRAMINE 25MG CAPSULE PO PRN (06:00)
[2018-05-24] MEDS ORDERED: TRIAMCINOLONE ACETONIDE 0.5% OINT 15GM TOP PRN (06:00)
[2018-05-24] MEDS ORDERED: HYDROCODONE/ACETAMINOPHEN 10/325MG TABLET PO PRN (06:00)
[2018-05-24 07:38] LABS: BASOPHILS % 0.2 % (0.0-2.0); HEMOGLOBIN. 10.9 g/dL (12.0-16.0); LYMPHOCYTES % 7.4 % (20.0-50.0); MEAN CORPUSCULAR HEMOGLOBIN 32.2 pg (28.0-32.0); MEAN CORPUSCULAR VOLUME 97.7 fL (81.0-99.0); MEAN PLATELET VOLUME 10.3 fl (7.4-10.4); MONOCYTES % 1.8 % (2.0-8.0); NEUTROPHILS % 88.6 % (40.0-76.0); PLATELET 204 x1000/uL (130-400); RED BLOOD CELL COUNT 3.37 mill/uL (4.2-5.4); RED CELL DISTRIBUTION WIDTH 14.5 % (11.6-14.6)
[2018-05-24 07:44] LABS: CHLORIDE 109 mEq/L (98-107)
[2018-05-24] MEDS ORDERED: ENOXAPARIN 30MG/0.3ML SYR SUBCUT SCH (09:00)
[2018-05-24] MEDS ORDERED: ENOXAPARIN 40MG/0.4ML SYR SUBCUT SCH (09:00)
[2018-05-24] MEDS: FAMOTIDINE 20MG TABLET PO SCH (09:33)
[2018-05-24] MEDS: AMLODIPINE 5MG TABLET PO SCH (09:35)
[2018-05-24] MEDS ORDERED: FUROSEMIDE 40MG/4ML VIAL IVP NR (15:00)
[2018-05-24] MEDS ORDERED: POTASSIUM CHLORIDE 20MEQ TABLET SR PO NR (15:00)
[2018-05-24] MEDS ORDERED: LORAZEPAM 2MG/ML CPJ IV PRN (18:45)
[2018-05-24] MEDS ORDERED: HYDRALAZINE 20MG/ML VIAL IV PRN (18:45)
[2018-05-24] MEDS: MONTELUKAST SODIUM 10MG TABLET PO SCH (20:15)
[2018-05-24] MEDS: ATORVASTATIN CALCIUM 10MG TABLET PO SCH (20:15)
[2018-05-24 20:45] LABS: PROTHROMBIN TIME 10.3 sec (9.1-11.1)
[2018-05-25] VITALS (12 sets, daily range): BP systolic 126–156; BP diastolic 68–90
[2018-05-25] MEDS: HYDROCODONE/ACETAMINOPHEN 10/325MG TABLET PO PRN ×2 (01:08→09:50)
[2018-05-25 06:30] LABS: HEMATOCRIT 32.2 % (36.0-48.0); HEMOGLOBIN 10.7 g/dL (12.0-16.0); MEAN CORPUSCULAR HEMOGLOBIN 32.5 pg (28.0-32.0); MEAN CORPUSCULAR VOLUME 97.2 fL (81.0-99.0); PLATELET 203 x1000/uL (130-400); RED BLOOD CELL COUNT 3.31 mill/uL (4.2-5.4); RED CELL DISTRIBUTION WIDTH 14.9 % (11.6-14.6)
[2018-05-25 07:05] LABS: CHLORIDE 110 mEq/L (98-107)
[2018-05-25] MEDS: DOCUSATE SODIUM 100MG CAPSULE PO PRN (08:32)
[2018-05-25] MEDS: AMLODIPINE 5MG TABLET PO SCH (08:32)
[2018-05-25] MEDS: ASPIRIN 81MG TABLET PO SCH (08:32)
[2018-05-25] MEDS: ENOXAPARIN 40MG/0.4ML SYR SUBCUT SCH (08:32)
[2018-05-25] MEDS: FAMOTIDINE 20MG TABLET PO SCH (08:33)
[2018-05-25] MEDS ORDERED: FUROSEMIDE 40MG/4ML VIAL IVP SCH (14:00)
[2018-05-25 14:23] LABS: BG BASE EXCESS 4.4 mmol/L (-2.0-2.0); BG CARBOXYHEMOGLOBIN 0.3 % (0.5-1.5); BG DEOXYHEMOGLOBIN 6.4 % (0.0-5.0); BG FRACTION INSPIRED OXYGEN 21; BG HCO3 ACT 27.8 mmol/L (22.0-26.0); BG METHEMOGLOBIN 0.1 % (0.0-1.5); BG OXYGEN SATURATION 93.6 % (92.0-98.5); BG OXYHEMOGLOBIN 93.2 % (94.0-97.0); BG PH 7.494 (7.350-7.450); BG PO2 69.6 mmHg (75.0-100.0); BG SAMPLE SITE RIGHT RADIAL; BG TOTAL HEMOGLOBIN 11.3 g/dL (12.0-18.0); BG VENT MODE ROOM AIR
[2018-05-25] MEDS: LEVOFLOXACIN 500MG PREMIX 100 ML IV SCH (14:58)
[2018-05-25] MEDS ORDERED: POTASSIUM CHLORIDE 20MEQ TABLET SR PO NR (16:00)
[2018-05-25] MEDS: MONTELUKAST SODIUM 10MG TABLET PO SCH (23:18)
[2018-05-25] MEDS: ATORVASTATIN CALCIUM 10MG TABLET PO SCH (23:18)
[2018-05-26 04:00] VITALS: BP 144/73
[2018-05-26 07:33] LABS: HEMATOCRIT 32.8 % (36.0-48.0); HEMOGLOBIN 10.7 g/dL (12.0-16.0); MEAN CORPUSCULAR HEMOGLOBIN 31.8 pg (28.0-32.0); MEAN CORPUSCULAR VOLUME 97.2 fL (81.0-99.0); PLATELET 239 x1000/uL (130-400); RED BLOOD CELL COUNT 3.37 mill/uL (4.2-5.4); RED CELL DISTRIBUTION WIDTH 14.6 % (11.6-14.6)
[2018-05-26] MEDS: ASPIRIN 81MG TABLET PO SCH (08:26)
[2018-05-26] MEDS: DOCUSATE SODIUM 100MG CAPSULE PO PRN (08:26)
[2018-05-26] MEDS: FAMOTIDINE 20MG TABLET PO SCH (08:26)
[2018-05-26] MEDS: ENOXAPARIN 40MG/0.4ML SYR SUBCUT SCH (08:28)
[2018-05-26] MEDS: AMLODIPINE 5MG TABLET PO SCH (08:29)
[2018-05-26] MEDS: IPRATROPIUM/ALBUTEROL 0.5-3(2.5)MG/3ML NEB HHN SCH ×2 (08:34→11:37)
[2018-05-26] MEDS ORDERED: FUROSEMIDE 40MG/4ML VIAL IVP SCH (09:00)
[2018-05-26] MEDS ORDERED: POTASSIUM CHLORIDE 20MEQ TABLET SR PO SCH (09:00)
[2018-05-26 12:00] VITALS: BP 114/64
[2018-05-26] MEDS: LEVOFLOXACIN 500MG PREMIX 100 ML IV SCH (13:00)
== END 2018-05-26 14:24 | disposition left against medical advice (07) | DRG 280 ==
LOC: ER 14:14 → 3WST 17:39 → ENRESERV 05-24 03:56 → 7WST 05-26
PROVIDERS: ADMIT Internal Medicine; ATTEND Internal Medicine
DX: I21.4 Non-ST elevation (NSTEMI) myocardial infarction (principal); I50.33 Acute on chronic diastolic (congestive) heart failure; N17.9 Acute kidney failure, unspecified; J44.1 Chronic obstructive pulmonary disease with (acute) exacerbation; I69.354 Hemiplegia and hemiparesis following cerebral infarction affecting left non-dominant side; E87.2 Acidosis; I31.3 Pericardial effusion (noninflammatory); G93.40 Encephalopathy, unspecified; E44.1 Mild protein-calorie malnutrition; I11.0 Hypertensive heart disease with heart failure; E87.6 Hypokalemia; D64.9 Anemia, unspecified; E78.5 Hyperlipidemia, unspecified; E87.70 Fluid overload, unspecified; R06.03 Acute respiratory distress; E78.00 Pure hypercholesterolemia, unspecified; F17.210 Nicotine dependence, cigarettes, uncomplicated; Z88.8 Allergy status to other drugs, medicaments and biological substances; Z91.19 Patient's noncompliance with other medical treatment and regimen; Z88.1 Allergy status to other antibiotic agents; Z88.0 Allergy status to penicillin
CPT/HCPCS: 36415; 36600; 71045; 80048; 80305; 82375; 82805; 83605; 83735; 83880; 84484; 85027; 93005; 93306; 93970; 94640; 96372; 96374; 97162; 97166; 97530; 99285; J1650; J1940; J1956; J2060; J2270; J7050; J7620; Q0163

== ENCOUNTER 2018-07-31 14:44 | Inpatient (IN) | payer OTHER, MEDICAID ==
[~2018-07-31] VITALS: Ht 165.1 cm; Wt 65.8 kg
[2018-07-31] MEDS ORDERED: KETOROLAC 30MG/ML VIAL IV STA (16:29)
[2018-07-31] MEDS ORDERED: ONDANSETRON HCL 4MG/2ML INJ IV STA (16:29)
[2018-07-31] MEDS ORDERED: SODIUM CHLORIDE 0.9% 1,000 ML IV ONE (16:29)
[2018-07-31] MEDS ORDERED: MORPHINE SULFATE 4 MG/ML CPJ (NOT FOR IM USE) IV STA (16:29)
[2018-07-31] MEDS ORDERED: LEVOFLOXACIN 750MG PREMIX 150 ML IV ONE (16:30)
[2018-07-31] MEDS ORDERED: VANCOMYCIN 1 G PREMIX 200 ML IV ONE (16:30)
[2018-07-31 16:46] LABS: EOSINOPHILS % 2.4 % (0.0-5.0); HEMATOCRIT. 29.7 % (36.0-48.0); HEMOGLOBIN. 9.7 g/dL (12.0-16.0); LYMPHOCYTES % 29.5 % (20.0-50.0); MEAN CORPUSCULAR HEMOGLOBIN 30.8 pg (28.0-32.0); MEAN PLATELET VOLUME 9.4 fl (7.4-10.4); MONOCYTES % 6.8 % (2.0-8.0); NEUTROPHILS % 60.3 % (40.0-76.0); PLATELET 321 x1000/uL (130-400); RED BLOOD CELL COUNT 3.16 mill/uL (4.2-5.4); RED CELL DISTRIBUTION WIDTH 18.3 % (11.6-14.6)
[2018-07-31 16:52] LABS: CHLORIDE 107 mEq/L (98-107); INR 1.1; PROTHROMBIN TIME 10.6 sec (9.1-11.1)
[2018-07-31 18:56] LABS: CLARITY URINE CLEAR (CLEAR); COLOR URINE DARK YELLOW (YELLOW); KETONES URINE TRACE (NEGATIVE); LEUKOCYTE ESTERASE URINE NEGATIVE (NEGATIVE); NITRITE URINE NEGATIVE (NEGATIVE); OCCULT BLOOD URINE NEGATIVE (NEGATIVE); PROTEIN URINE NEGATIVE (NEGATIVE); SPECIFIC GRAVITY URINE 1.044 (1.005-1.030)
[2018-07-31] MEDS ORDERED: IOHEXOL-350 100 ML BOTTLE ONE (18:57)
[2018-07-31] MEDS ORDERED: LORAZEPAM 2MG/ML CPJ IV ONE (20:15)
[2018-07-31] MEDS: MORPHINE SULFATE 4 MG/ML CPJ (NOT FOR IM USE) IV PRN (22:02)
[2018-07-31 23:30] VITALS: BP 140/80
[2018-08-01] VITALS: BP 145/80
[2018-08-01] MEDS: MORPHINE SULFATE 4 MG/ML CPJ (NOT FOR IM USE) IV PRN ×5 (01:52→21:19)
[2018-08-01 04:00] VITALS: BP 146/73
[2018-08-01 08:00] VITALS: BP 141/72
[2018-08-01 12:00] VITALS: BP 138/79
[2018-08-01] MEDS ORDERED: HYDROCODONE/APAP 7.5/325MG 1 TAB TABLET PO PRN (13:45)
[2018-08-01] MEDS ORDERED: LIDOCAINE HCL 1% 20ML VIAL (Pyxis) INJ ONE (14:15)
[2018-08-01] MEDS ORDERED: IPRATROPIUM/ALBUTEROL 0.5-3(2.5)MG/3ML NEB INH PRN (14:30)
[2018-08-01] MEDS ORDERED: CLONIDINE 0.1MG TABLET PO PRN (14:30)
[2018-08-01] MEDS ORDERED: ONDANSETRON HCL 4MG/2ML INJ IV PRN (14:30)
[2018-08-01] MEDS ORDERED: ACETAMINOPHEN 325MG TABLET PO PRN (14:30)
[2018-08-01 16:00] VITALS: BP 127/78
[2018-08-01] MEDS: VANCOMYCIN 1 G PREMIX 200 ML IV SCH ×2 (17:31→17:38)
[2018-08-01] MEDS: ENOXAPARIN 40MG/0.4ML SYR SUBCUT SCH (17:38)
[2018-08-01] MEDS ORDERED: AZTREONAM 2 GM in DEXT 5% WATER 100 ML IV SCH (18:00)
[2018-08-01 20:00] VITALS: BP 148/74
[2018-08-01] MEDS: DIPHENHYDRAMINE 50MG/ML VIAL IV PRN (21:37)
[2018-08-01] MEDS ORDERED: TEMAZEPAM 15MG CAPSULE PO PRN (22:00)
[2018-08-01] MEDS: HYDROCODONE/APAP 7.5/325MG 1 TAB TABLET PO PRN (22:09)
[2018-08-01] MEDS: AZTREONAM 2 GM in DEXT 5% WATER 100 ML IV SCH (23:54)
[2018-08-02 00:07] VITALS: BP 134/73
[2018-08-02] MEDS: VANCOMYCIN 750 MG PREMIX 150 ML IV SCH ×2 (02:21→14:20)
[2018-08-02] MEDS: MORPHINE SULFATE 4 MG/ML CPJ (NOT FOR IM USE) IV PRN ×4 (02:22→19:28)
[2018-08-02] MEDS: DIPHENHYDRAMINE 50MG/ML VIAL IV PRN ×4 (03:12→23:27)
[2018-08-02 04:00] VITALS: BP 150/73
[2018-08-02] MEDS: HYDROCODONE/APAP 7.5/325MG 1 TAB TABLET PO PRN (05:58)
[2018-08-02 06:22] LABS: BASOPHILS % 0.4 % (0.0-2.0); EOSINOPHILS % 2.8 % (0.0-5.0); HEMATOCRIT. 30.2 % (36.0-48.0); HEMOGLOBIN. 9.8 g/dL (12.0-16.0); LYMPHOCYTES % 26.3 % (20.0-50.0); MEAN CORPUSCULAR HEMOGLOBIN 30.4 pg (28.0-32.0); MEAN CORPUSCULAR VOLUME 93.8 fL (81.0-99.0); MEAN PLATELET VOLUME 9.3 fl (7.4-10.4); MONOCYTES % 7.8 % (2.0-8.0); NEUTROPHILS % 62.7 % (40.0-76.0); PLATELET 349 x1000/uL (130-400); RED BLOOD CELL COUNT 3.22 mill/uL (4.2-5.4); RED CELL DISTRIBUTION WIDTH 18.3 % (11.6-14.6)
[2018-08-02 06:37] LABS: CHLORIDE 106 mEq/L (98-107)
[2018-08-02 07:03] LABS: LDL CHOLESTEROL 73 mg/dL (5-100)
[2018-08-02 07:04] LABS: CREATINE KINASE 54 IU/L (26-192)
[2018-08-02 07:05] LABS: HDL CHOLESTEROL 55 mg/dL (40-59)
[2018-08-02 07:06] LABS: T4 FREE 1.08 ng/dL (0.76-1.46)
[2018-08-02] MEDS ORDERED: SODIUM BICARBONATE 4% (2.4MEQ) 5ML VIAL IV ONE (07:41)
[2018-08-02] MEDS ORDERED: LIDOCAINE HCL 1% 20ML VIAL (Pyxis) INJ ONE (07:41)
[2018-08-02 08:00] VITALS: BP 161/53
[2018-08-02 12:00] VITALS: BP 137/64
[2018-08-02] MEDS: AZTREONAM 2 GM in DEXT 5% WATER 100 ML IV SCH (12:13)
[2018-08-02] MEDS ORDERED: TEMAZEPAM 15MG CAPSULE PO PRN (15:30)
[2018-08-02 16:00] VITALS: BP 122/64
[2018-08-02] MEDS ORDERED: LEVOFLOXACIN 500MG PREMIX 100 ML IV SCH (16:00)
[2018-08-02] MEDS: ENOXAPARIN 40MG/0.4ML SYR SUBCUT SCH (18:52)
[2018-08-02 20:00] VITALS: BP 152/62
[2018-08-02] MEDS: NITROFURANTOIN 100MG M/M CAPSULE PO SCH (21:07)
[2018-08-03] VITALS: BP 155/80
[2018-08-03] MEDS: MORPHINE SULFATE 4 MG/ML CPJ (NOT FOR IM USE) IV PRN ×3 (01:05→12:25)
[2018-08-03] MEDS: VANCOMYCIN 750 MG PREMIX 150 ML IV SCH ×2 (01:06→14:01)
[2018-08-03 04:00] VITALS: BP 166/96
[2018-08-03 07:21] LABS: CHLORIDE 106 mEq/L (98-107)
[2018-08-03 07:31] LABS: HEMATOCRIT 27.4 % (36.0-48.0); MEAN CORPUSCULAR VOLUME 93.8 fL (81.0-99.0); PLATELET 307 x1000/uL (130-400); RED BLOOD CELL COUNT 2.92 mill/uL (4.2-5.4)
[2018-08-03] MEDS: NITROFURANTOIN 100MG M/M CAPSULE PO SCH (07:33)
[2018-08-03] MEDS ORDERED: LEVOTHYROXINE SODIUM 25MCG TABLET PO SCH (07:40)
[2018-08-03] MEDS ORDERED: IOHEXOL-350 100 ML BOTTLE ONE (09:24)
[2018-08-03 12:00] VITALS: BP 149/89
[2018-08-03 16:00] VITALS: BP 139/76
[2018-08-04] MEDS ORDERED: NICOTINE 14MG PATCH TD SCH (09:00)
== END 2018-08-03 16:30 | disposition left against medical advice (07) | DRG 862 ==
LOC: ER 14:44 → 7WST 20:16 → EDBEDREQTM 20:20 → EDBEDREQSVC 20:20 → EDBEDREQ 20:20 → ENRESERV 21:35
PROVIDERS: ADMIT Internal Medicine; ATTEND Internal Medicine
PROC: 02HV33Z Insertion of Infusion Device into Superior Vena Cava, Percutaneous Approach (ICD-10-PCS; principal; 2018-08-02)
PROC: B518ZZA Fluoroscopy of Superior Vena Cava, Guidance (ICD-10-PCS; 2018-08-02)
PROC: B548ZZA Ultrasonography of Superior Vena Cava, Guidance (ICD-10-PCS; 2018-08-02)
DX: T81.49XA Infection following a procedure, other surgical site, initial encounter (principal); I50.33 Acute on chronic diastolic (congestive) heart failure; A41.9 Sepsis, unspecified organism; L03.115 Cellulitis of right lower limb; N39.0 Urinary tract infection, site not specified; I31.3 Pericardial effusion (noninflammatory); J44.1 Chronic obstructive pulmonary disease with (acute) exacerbation; G93.40 Encephalopathy, unspecified; T82.868A Thrombosis due to vascular prosthetic devices, implants and grafts, initial encounter; I69.354 Hemiplegia and hemiparesis following cerebral infarction affecting left non-dominant side; M86.8X7 Other osteomyelitis, ankle and foot; Y83.2 Surgical operation with anastomosis, bypass or graft as the cause of abnormal reaction of the patient, or of later complication, without mention of misadventure at the time of the procedure; T81.44XA Sepsis following a procedure, initial encounter; I73.9 Peripheral vascular disease, unspecified; D64.9 Anemia, unspecified; E78.5 Hyperlipidemia, unspecified; I11.0 Hypertensive heart disease with heart failure; E02 Subclinical iodine-deficiency hypothyroidism; L97.519 Non-pressure chronic ulcer of other part of right foot with unspecified severity; B96.20 Unspecified Escherichia coli [E. coli] as the cause of diseases classified elsewhere; F17.200 Nicotine dependence, unspecified, uncomplicated; K21.9 Gastro-esophageal reflux disease without esophagitis; F41.9 Anxiety disorder, unspecified; M19.90 Unspecified osteoarthritis, unspecified site; B96.89 Other specified bacterial agents as the cause of diseases classified elsewhere; B95.62 Methicillin resistant Staphylococcus aureus infection as the cause of diseases classified elsewhere; Y83.5 Amputation of limb(s) as the cause of abnormal reaction of the patient, or of later complication, without mention of misadventure at the time of the procedure; Y92.89 Other specified places as the place of occurrence of the external cause; Z91.19 Patient's noncompliance with other medical treatment and regimen; Z88.8 Allergy status to other drugs, medicaments and biological substances; Z88.1 Allergy status to other antibiotic agents; Z88.0 Allergy status to penicillin; Z87.440 Personal history of urinary (tract) infections
CPT/HCPCS: 36415; 36569; 36573; 71045; 73590; 73630; 75635; 80048; 80061; 80202; 82550; 83605; 83880; 84145; 84439; 84443; 84484; 85027; 87070; 87077; 87186; 93005; 96374; 96375; 99291; C1725; J1200; J1650; J1885; J1956; J2060; J2270; J2405; J3370; J3490; J7030; J7050; J7060; Q9967; A4315

== ENCOUNTER 2018-08-07 08:34 | Inpatient (IN) | payer OTHER, MEDICAID ==
[~2018-08-07] VITALS: Ht 154.9 cm; Wt 59.0 kg
[2018-08-07 09:25] LABS: BASOPHILS % 0.8 % (0.0-2.0); EOSINOPHILS % 1.3 % (0.0-5.0); HEMATOCRIT. 32.8 % (36.0-48.0); HEMOGLOBIN. 10.6 g/dL (12.0-16.0); LYMPHOCYTES % 23.4 % (20.0-50.0); MEAN CORPUSCULAR HEMOGLOBIN 30.6 pg (28.0-32.0); MEAN CORPUSCULAR VOLUME 94.2 fL (81.0-99.0); MEAN PLATELET VOLUME 8.6 fl (7.4-10.4); NEUTROPHILS % 67.5 % (40.0-76.0); PLATELET 384 x1000/uL (130-400); RED BLOOD CELL COUNT 3.48 mill/uL (4.2-5.4); RED CELL DISTRIBUTION WIDTH 18.2 % (11.6-14.6)
[2018-08-07 09:32] LABS: CHLORIDE 107 mEq/L (98-107)
[2018-08-07] MEDS ORDERED: HYDROCODONE/ACETAMINOPHEN 5/325MG TABLET PO ONE (10:15)
[2018-08-07] MEDS ORDERED: LEVOFLOXACIN 750MG PREMIX 150 ML IV ONE (10:45)
[2018-08-07 12:00] VITALS: BP 176/82
[2018-08-07 12:20] VITALS: BP 168/75
[2018-08-07] MEDS ORDERED: ACETAMINOPHEN 650MG/20.3ML UDC PO PRN (13:00)
[2018-08-07] MEDS ORDERED: TRAMADOL 50MG TABLET PO PRN ×2 (13:00→17:30)
[2018-08-07] MEDS: ENOXAPARIN 40MG/0.4ML SYR SUBCUT SCH (13:11)
[2018-08-07] MEDS ORDERED: CLONIDINE 0.1MG TABLET PO PRN (15:15)
[2018-08-07 16:00] VITALS: BP 148/76
[2018-08-07] MEDS ORDERED: VANCOMYCIN 1250MG in DEXTROSE 5% WATER 250ML IV NR (18:30)
[2018-08-07] MEDS: HYDROCODONE/ACETAMINOPHEN 10/325MG TABLET PO PRN (18:43)
[2018-08-07 20:00] VITALS: BP 165/91
[2018-08-07] MEDS ORDERED: GENTAMICIN 120MG PREMIX 100 ML IV NR (20:00)
[2018-08-07] MEDS: KETOROLAC 30MG/ML VIAL IV PRN (20:17)
[2018-08-07] MEDS: PREGABALIN 50 MG CAPSULE PO SCH (20:28)
[2018-08-07] MEDS ORDERED: TEMAZEPAM 15MG CAPSULE PO PRN (21:00)
[2018-08-08] VITALS: BP 160/86
[2018-08-08] MEDS: HYDROCODONE/ACETAMINOPHEN 10/325MG TABLET PO PRN ×4 (03:41→20:17)
[2018-08-08 04:00] VITALS: BP 152/85
[2018-08-08] MEDS: KETOROLAC 30MG/ML VIAL IV PRN ×3 (05:58→18:08)
[2018-08-08 08:00] VITALS: BP 147/74
[2018-08-08] MEDS ORDERED: GENTAMICIN SULFATE 60 MG in SODIUM CHLORIDE 0.9% 50 ML IV SCH (08:00)
[2018-08-08] MEDS: AMLODIPINE 10MG TABLET PO SCH (08:46)
[2018-08-08] MEDS: PREGABALIN 50 MG CAPSULE PO SCH ×2 (08:46→21:03)
[2018-08-08] MEDS: NICOTINE 14MG PATCH TD SCH (08:46)
[2018-08-08] MEDS ORDERED: LEVOFLOXACIN 250MG TABLET PO SCH (11:00)
[2018-08-08] MEDS: VANCOMYCIN 1 G PREMIX 200 ML IV SCH (11:54)
[2018-08-08 12:00] VITALS: BP 136/72
[2018-08-08] MEDS ORDERED: GABAPENTIN 100MG CAPSULE PO SCH (12:00)
[2018-08-08 12:30] LABS: HEMATOCRIT 28.7 % (36.0-48.0); HEMOGLOBIN 9.5 g/dL (12.0-16.0); MEAN CORPUSCULAR HEMOGLOBIN 31.1 pg (28.0-32.0); MEAN CORPUSCULAR VOLUME 93.8 fL (81.0-99.0); PLATELET 356 x1000/uL (130-400); RED BLOOD CELL COUNT 3.06 mill/uL (4.2-5.4); RED CELL DISTRIBUTION WIDTH 18.1 % (11.6-14.6)
[2018-08-08 12:37] LABS: CHLORIDE 107 mEq/L (98-107)
[2018-08-08] MEDS: ENOXAPARIN 40MG/0.4ML SYR SUBCUT SCH (13:59)
[2018-08-08] MEDS: DIPHENHYDRAMINE 25MG CAPSULE PO PRN (14:01)
[2018-08-08] MEDS ORDERED: DOCUSATE SODIUM 250MG CAPSULE PO PRN (14:15)
[2018-08-08 16:00] VITALS: BP 161/81
[2018-08-08 20:00] VITALS: BP 155/82
[2018-08-09] VITALS: BP 123/64
[2018-08-09] MEDS: KETOROLAC 30MG/ML VIAL IV PRN (00:45)
[2018-08-09] MEDS: DIPHENHYDRAMINE 25MG CAPSULE PO PRN (00:56)
[2018-08-09 04:00] VITALS: BP 151/73
[2018-08-09] MEDS: HYDROCODONE/ACETAMINOPHEN 10/325MG TABLET PO PRN ×2 (04:11→10:17)
[2018-08-09 05:14] LABS: HEMATOCRIT 30.1 % (36.0-48.0); HEMOGLOBIN 9.9 g/dL (12.0-16.0); MEAN CORPUSCULAR HEMOGLOBIN 31.3 pg (28.0-32.0); PLATELET 339 x1000/uL (130-400); RED BLOOD CELL COUNT 3.17 mill/uL (4.2-5.4); RED CELL DISTRIBUTION WIDTH 18.1 % (11.6-14.6)
[2018-08-09] MEDS: VANCOMYCIN 1 G PREMIX 200 ML IV SCH (05:16)
[2018-08-09 05:43] LABS: CHLORIDE 110 mEq/L (98-107)
[2018-08-09 07:42] VITALS: BP 151/73
[2018-08-09 08:00] VITALS: BP 148/91
[2018-08-09] MEDS: AMLODIPINE 10MG TABLET PO SCH (08:55)
[2018-08-09] MEDS: PREGABALIN 50 MG CAPSULE PO SCH (08:55)
[2018-08-09] MEDS: NICOTINE 14MG PATCH TD SCH (08:55)
[2018-08-09 10:17] VITALS: BP 148/91
== END 2018-08-09 11:15 | disposition home health service (06) | DRG 564 ==
LOC: ER 08:34 → ENRESERV 11:50 → 6EST 12:29
PROVIDERS: ADMIT Internal Medicine; ATTEND Internal Medicine
DX: T87.43 Infection of amputation stump, right lower extremity (principal); I50.33 Acute on chronic diastolic (congestive) heart failure; A41.02 Sepsis due to Methicillin resistant Staphylococcus aureus; J44.1 Chronic obstructive pulmonary disease with (acute) exacerbation; G93.49 Other encephalopathy; N39.0 Urinary tract infection, site not specified; L03.115 Cellulitis of right lower limb; I69.354 Hemiplegia and hemiparesis following cerebral infarction affecting left non-dominant side; I73.9 Peripheral vascular disease, unspecified; M19.90 Unspecified osteoarthritis, unspecified site; I11.0 Hypertensive heart disease with heart failure; D64.9 Anemia, unspecified; E03.9 Hypothyroidism, unspecified; E78.00 Pure hypercholesterolemia, unspecified; E78.5 Hyperlipidemia, unspecified; B96.20 Unspecified Escherichia coli [E. coli] as the cause of diseases classified elsewhere; F17.210 Nicotine dependence, cigarettes, uncomplicated; K21.9 Gastro-esophageal reflux disease without esophagitis; Z79.899 Other long term (current) drug therapy; Z82.49 Family history of ischemic heart disease and other diseases of the circulatory system; Z91.19 Patient's noncompliance with other medical treatment and regimen; Z88.9 Allergy status to unspecified drugs, medicaments and biological substances; Z88.0 Allergy status to penicillin; Y83.8 Other surgical procedures as the cause of abnormal reaction of the patient, or of later complication, without mention of misadventure at the time of the procedure
CPT/HCPCS: 36415; 80048; 80202; 83605; 85027; 96365; 96367; 96372; 99285; J1580; J1650; J1885; J1956; J3370; J7060; Q0163

== ENCOUNTER 2018-08-15 00:45 | Inpatient (IN) | payer OTHER, MEDICAID ==
[~2018-08-15] VITALS: Ht 154.9 cm; Wt 59.0 kg
[2018-08-15] MEDS ORDERED: MORPHINE SULFATE 4 MG/ML CPJ (NOT FOR IM USE) IV STA (02:09)
[2018-08-15] MEDS ORDERED: BACITRACIN ZINC OINT UDPKT TOP ONE (02:30)
[2018-08-15 02:31] LABS: BASOPHILS % 0.7 % (0.0-2.0); EOSINOPHILS % 1.5 % (0.0-5.0); HEMATOCRIT. 33.8 % (36.0-48.0); HEMOGLOBIN. 11.1 g/dL (12.0-16.0); MEAN CORPUSCULAR HEMOGLOBIN 30.7 pg (28.0-32.0); MEAN CORPUSCULAR VOLUME 93.4 fL (81.0-99.0); MEAN PLATELET VOLUME 8.7 fl (7.4-10.4); MONOCYTES % 8.6 % (2.0-8.0); NEUTROPHILS % 59.2 % (40.0-76.0); PLATELET 366 x1000/uL (130-400); RED BLOOD CELL COUNT 3.62 mill/uL (4.2-5.4); RED CELL DISTRIBUTION WIDTH 17.5 % (11.6-14.6)
[2018-08-15 02:38] LABS: CHLORIDE 110 mEq/L (98-107)
[2018-08-15] MEDS ORDERED: KETOROLAC 30MG/ML VIAL IV STA (04:25)
[2018-08-15] MEDS ORDERED: SODIUM CHLORIDE 0.9% 1,000 ML IV ONE (04:25)
[2018-08-15] MEDS ORDERED: VANCOMYCIN 1 G PREMIX 200 ML IV NR (05:45)
[2018-08-15] MEDS ORDERED: IBUPROFEN 600MG TABLET PO PRN (05:45)
[2018-08-15] MEDS ORDERED: CLINDAMYCIN 900 MG in DEXTROSE 5% WATER 50 ML IV NR (05:45)
[2018-08-15 06:52] LABS: CLARITY URINE CLEAR (CLEAR); COLOR URINE YELLOW (YELLOW); KETONES URINE NEGATIVE (NEGATIVE); LEUKOCYTE ESTERASE URINE TRACE (NEGATIVE); NITRITE URINE NEGATIVE (NEGATIVE); OCCULT BLOOD URINE NEGATIVE (NEGATIVE); PH URINE 5.5 (4.5-8.0); PROTEIN URINE NEGATIVE (NEGATIVE); SPECIFIC GRAVITY URINE 1.021 (1.005-1.030); UROBILINOGEN URINE 0.2 E.U./dL (0.2-1.0)
[2018-08-15 07:10] LABS: *AMPHETAMINES SCREEN URINE NEGATIVE (NEGATIVE); *BARBITURATES SCREEN URINE NEGATIVE (NEGATIVE); *BENZODIAZEPINES SCREEN URINE NEGATIVE (NEGATIVE); *COCAINE SCREEN URINE NEGATIVE (NEGATIVE); METHADONE URINE SCREEN NEGATIVE (NEGATIVE); OPIATES URINE SCREEN PRESUMTIVE POSITIVE (NEGATIVE)
[2018-08-15 07:11] LABS: CANNABINOID URINE SCREEN NEGATIVE (NEGATIVE); PHENCYCLIDINE URINE SCREEN NEGATIVE (NEGATIVE)
[2018-08-15 11:24] VITALS: BP 135/65
[2018-08-15] MEDS ORDERED: MAGNESIUM/ALUMINUM HYDROXIDE/SIMETHICONE 30ML UDC PO PRN (13:45)
[2018-08-15] MEDS ORDERED: DOCUSATE SODIUM 100MG CAPSULE PO PRN (13:45)
[2018-08-15] MEDS ORDERED: CLONIDINE 0.1MG TABLET PO PRN (13:45)
[2018-08-15] MEDS ORDERED: ACETAMINOPHEN 325MG TABLET PO PRN (13:45)
[2018-08-15] MEDS ORDERED: NA PHOS,M-B/NA PHOS,DI-BA ENEMA 118ML PR PRN (13:45)
[2018-08-15] MEDS ORDERED: IPRATROPIUM/ALBUTEROL 0.5-3(2.5)MG/3ML NEB INH PRN (13:45)
[2018-08-15] MEDS ORDERED: ONDANSETRON HCL 4MG/2ML INJ IV PRN (13:45)
[2018-08-15] MEDS ORDERED: PIPERACILLIN/TAZ 3.375G PREMIX 50 ML IV SCH (13:45)
[2018-08-15] MEDS ORDERED: GUAIFENESIN 200MG/10ML SUGAR FREE UDC PO PRN (13:45)
[2018-08-15] MEDS ORDERED: ACETAMINOPHEN 650MG SUPP PR PRN (13:45)
[2018-08-15] MEDS ORDERED: FUROSEMIDE 40MG/4ML VIAL IV SCH (14:00)
[2018-08-15] MEDS: ENOXAPARIN 40MG/0.4ML SYR SUBCUT SCH (14:30)
[2018-08-15] MEDS: HYDROCODONE/ACETAMINOPHEN 5/325MG TABLET PO PRN (14:34)
[2018-08-15] MEDS ORDERED: LIDOCAINE HCL/EPINEPHRINE 1%-EPI 1:100,000 30 ML VIAL INFIL NR (15:30)
[2018-08-15] MEDS ORDERED: VANCOMYCIN 1250MG in DEXTROSE 5% WATER 250ML IV NR (16:00)
[2018-08-15] MEDS ORDERED: LIDOCAINE HCL/EPINEPHRINE 1%-EPI 1:100,000 20 ML VIAL INFIL NR (18:00)
[2018-08-15 20:00] VITALS: BP 170/83
[2018-08-15] MEDS: LORAZEPAM 0.5MG TABLET PO PRN (21:04)
[2018-08-16] VITALS: BP 160/71
[2018-08-16] MEDS: AZTREONAM 1G in DEXTROSE 5% WATER 50ML IV SCH ×3 (00:29→16:04)
[2018-08-16 04:00] VITALS: BP 151/90
[2018-08-16] MEDS: DIPHENHYDRAMINE 50MG/ML VIAL IV PRN (05:30)
[2018-08-16] MEDS: HYDROCODONE/ACETAMINOPHEN 5/325MG TABLET PO PRN ×3 (05:33→15:42)
[2018-08-16 06:02] LABS: BASOPHILS % 0.7 % (0.0-2.0); HEMATOCRIT. 32.3 % (36.0-48.0); HEMOGLOBIN. 10.7 g/dL (12.0-16.0); LYMPHOCYTES % 27.5 % (20.0-50.0); MEAN CORPUSCULAR HEMOGLOBIN 31.2 pg (28.0-32.0); MEAN CORPUSCULAR VOLUME 94.3 fL (81.0-99.0); MEAN PLATELET VOLUME 9.1 fl (7.4-10.4); MONOCYTES % 8.7 % (2.0-8.0); NEUTROPHILS % 61.1 % (40.0-76.0); PLATELET 341 x1000/uL (130-400); RED BLOOD CELL COUNT 3.42 mill/uL (4.2-5.4); RED CELL DISTRIBUTION WIDTH 17.7 % (11.6-14.6)
[2018-08-16] MEDS: LORAZEPAM 0.5MG TABLET PO PRN (06:27)
[2018-08-16 08:00] VITALS: BP 117/69
[2018-08-16] MEDS ORDERED: VANCOMYCIN 1 G PREMIX 200 ML IV SCH (08:00)
[2018-08-16 09:17] LABS: CHLORIDE 111 mEq/L (98-107)
[2018-08-16 09:29] LABS: T4 FREE 0.96 ng/dL (0.76-1.46)
[2018-08-16 12:00] VITALS: BP 135/72
[2018-08-16] MEDS: KETOROLAC 15MG/ML VIAL IV PRN ×2 (13:10→20:00)
[2018-08-16] MEDS: ENOXAPARIN 40MG/0.4ML SYR SUBCUT SCH (14:12)
[2018-08-16 16:00] VITALS: BP 119/88
[2018-08-16 20:00] VITALS: BP 124/86
[2018-08-16] MEDS: VANCOMYCIN 750 MG PREMIX 150 ML IV SCH (22:14)
[2018-08-17] VITALS: BP 126/86
[2018-08-17] MEDS: AZTREONAM 1G in DEXTROSE 5% WATER 50ML IV SCH ×3 (00:20→20:58)
[2018-08-17] MEDS: HYDROCODONE/ACETAMINOPHEN 5/325MG TABLET PO PRN ×2 (01:05→07:15)
[2018-08-17] MEDS: KETOROLAC 15MG/ML VIAL IV PRN ×2 (03:37→18:25)
[2018-08-17 04:00] VITALS: BP 138/79
[2018-08-17 06:59] LABS: HEMATOCRIT 30.9 % (36.0-48.0); HEMOGLOBIN 10.2 g/dL (12.0-16.0); MEAN CORPUSCULAR HEMOGLOBIN 30.8 pg (28.0-32.0); MEAN CORPUSCULAR VOLUME 93.7 fL (81.0-99.0); PLATELET 304 x1000/uL (130-400)
[2018-08-17 07:26] LABS: CHLORIDE 109 mEq/L (98-107)
[2018-08-17] MEDS: DIPHENHYDRAMINE 50MG/ML VIAL IV PRN ×4 (07:40→22:05)
[2018-08-17 08:00] VITALS: BP 156/97
[2018-08-17] MEDS: VANCOMYCIN 750 MG PREMIX 150 ML IV SCH ×2 (09:51→20:59)
[2018-08-17] MEDS: MORPHINE SULFATE 4 MG/ML CPJ (NOT FOR IM USE) IV PRN ×3 (09:52→21:00)
[2018-08-17] MEDS ORDERED: MORPHINE SULFATE 4 MG/ML CPJ (NOT FOR IM USE) IV ONE (10:45)
[2018-08-17] MEDS ORDERED: MORPHINE SULFATE 4 MG/ML CPJ (NOT FOR IM USE) IV NR (10:45)
[2018-08-17 12:00] VITALS: BP 171/88
[2018-08-17] MEDS: ENOXAPARIN 40MG/0.4ML SYR SUBCUT SCH (13:31)
[2018-08-17] MEDS ORDERED: AMLODIPINE 5MG TABLET PO NR (13:45)
[2018-08-17 16:00] VITALS: BP 176/89
[2018-08-17 20:00] VITALS: BP 158/86
[2018-08-17] MEDS: AMLODIPINE 5MG TABLET PO SCH (20:59)
[2018-08-18] VITALS (7 sets, daily range): BP systolic 120–194; BP diastolic 58–92
[2018-08-18] MEDS: LORAZEPAM 0.5MG TABLET PO PRN ×2 (00:23→22:41)
[2018-08-18] MEDS: HYDROCODONE/ACETAMINOPHEN 5/325MG TABLET PO PRN ×2 (00:25→17:29)
[2018-08-18] MEDS: MORPHINE SULFATE 4 MG/ML CPJ (NOT FOR IM USE) IV PRN ×3 (03:28→16:17)
[2018-08-18] MEDS: DIPHENHYDRAMINE 50MG/ML VIAL IV PRN ×2 (03:28→11:45)
[2018-08-18] MEDS: AZTREONAM 1G in DEXTROSE 5% WATER 50ML IV SCH ×3 (03:29→15:17)
[2018-08-18 07:48] LABS: HEMATOCRIT 30.1 % (36.0-48.0); HEMOGLOBIN 9.9 g/dL (12.0-16.0); MEAN CORPUSCULAR HEMOGLOBIN 30.7 pg (28.0-32.0); MEAN CORPUSCULAR VOLUME 93.8 fL (81.0-99.0); PLATELET 306 x1000/uL (130-400); RED BLOOD CELL COUNT 3.21 mill/uL (4.2-5.4); RED CELL DISTRIBUTION WIDTH 17.3 % (11.6-14.6)
[2018-08-18 07:59] LABS: CHLORIDE 109 mEq/L (98-107)
[2018-08-18] MEDS: AMLODIPINE 5MG TABLET PO SCH ×2 (08:53→22:41)
[2018-08-18] MEDS: VANCOMYCIN 750 MG PREMIX 150 ML IV SCH ×2 (10:04→22:42)
[2018-08-18] MEDS: KETOROLAC 15MG/ML VIAL IV PRN ×2 (13:16→22:42)
[2018-08-18] MEDS: ENOXAPARIN 40MG/0.4ML SYR SUBCUT SCH (15:17)
[2018-08-19] VITALS: BP 106/61
[2018-08-19] MEDS: AZTREONAM 1G in DEXTROSE 5% WATER 50ML IV SCH ×2 (02:05→08:44)
[2018-08-19] MEDS: MORPHINE SULFATE 4 MG/ML CPJ (NOT FOR IM USE) IV PRN ×2 (03:49→12:11)
[2018-08-19] MEDS: DIPHENHYDRAMINE 50MG/ML VIAL IV PRN ×2 (03:53→12:15)
[2018-08-19 04:00] VITALS: BP 140/71
[2018-08-19] MEDS: LORAZEPAM 0.5MG TABLET PO PRN (06:24)
[2018-08-19] MEDS: HYDROCODONE/ACETAMINOPHEN 5/325MG TABLET PO PRN ×2 (06:25→10:42)
[2018-08-19 08:00] VITALS: BP 139/72
[2018-08-19] MEDS: AMLODIPINE 5MG TABLET PO SCH (08:44)
[2018-08-19] MEDS: VANCOMYCIN 750 MG PREMIX 150 ML IV SCH (08:44)
[2018-08-19] MEDS: KETOROLAC 15MG/ML VIAL IV PRN ×2 (08:47→14:49)
[2018-08-19 09:50] VITALS: BP 125/81
[2018-08-19 12:00] VITALS: BP 138/60
[2018-08-19] MEDS: ENOXAPARIN 40MG/0.4ML SYR SUBCUT SCH (13:31)
[2018-08-19 16:22] VITALS: BP 129/51
== END 2018-08-19 16:00 | disposition home health service (06) | DRG 500 ==
LOC: ER 00:45 → 6EST 05:48 → ENRESERV 08:08
PROVIDERS: ADMIT Internal Medicine; ATTEND Internal Medicine
PROC: 0KBV0ZZ Excision of Right Foot Muscle, Open Approach (ICD-10-PCS; principal; 2018-08-15)
DX: T87.81 Dehiscence of amputation stump (principal); I50.33 Acute on chronic diastolic (congestive) heart failure; J44.1 Chronic obstructive pulmonary disease with (acute) exacerbation; I69.354 Hemiplegia and hemiparesis following cerebral infarction affecting left non-dominant side; G93.40 Encephalopathy, unspecified; N39.0 Urinary tract infection, site not specified; I96 Gangrene, not elsewhere classified; F17.200 Nicotine dependence, unspecified, uncomplicated; I11.0 Hypertensive heart disease with heart failure; B96.89 Other specified bacterial agents as the cause of diseases classified elsewhere; E78.00 Pure hypercholesterolemia, unspecified; E78.5 Hyperlipidemia, unspecified; F41.9 Anxiety disorder, unspecified; M19.90 Unspecified osteoarthritis, unspecified site; R26.9 Unspecified abnormalities of gait and mobility; Y83.5 Amputation of limb(s) as the cause of abnormal reaction of the patient, or of later complication, without mention of misadventure at the time of the procedure; G89.29 Other chronic pain; K21.9 Gastro-esophageal reflux disease without esophagitis; Z91.19 Patient's noncompliance with other medical treatment and regimen; Z88.1 Allergy status to other antibiotic agents; Z88.8 Allergy status to other drugs, medicaments and biological substances; Z88.0 Allergy status to penicillin; Z79.899 Other long term (current) drug therapy; Y92.89 Other specified places as the place of occurrence of the external cause
CPT/HCPCS: 36415; 73700; 80048; 80202; 80305; 84439; 84443; 84481; 85027; 87070; 87075; 87077; 87186; 93923; 96374; 96375; 97162; 99285; C1893; J1200; J1650; J1885; J2270; J3370; J3490; J7030; J7050; J7060

== ENCOUNTER 2018-08-22 00:51 | Inpatient (IN) | payer OTHER, MEDICAID ==
[~2018-08-22] VITALS: Ht 154.9 cm; Wt 59.0 kg
[2018-08-22] MEDS ORDERED: MORPHINE SULFATE 4 MG/ML CPJ (NOT FOR IM USE) IV STA (04:17)
[2018-08-22 04:47] LABS: BASOPHILS % 0.7 % (0.0-2.0); HEMATOCRIT. 32.1 % (36.0-48.0); HEMOGLOBIN. 10.5 g/dL (12.0-16.0); LYMPHOCYTES % 26.8 % (20.0-50.0); MEAN CORPUSCULAR HEMOGLOBIN 30.8 pg (28.0-32.0); MEAN CORPUSCULAR VOLUME 93.7 fL (81.0-99.0); MEAN PLATELET VOLUME 9.1 fl (7.4-10.4); MONOCYTES % 5.9 % (2.0-8.0); NEUTROPHILS % 63.6 % (40.0-76.0); PLATELET 310 x1000/uL (130-400); RED BLOOD CELL COUNT 3.42 mill/uL (4.2-5.4); RED CELL DISTRIBUTION WIDTH 16.7 % (11.6-14.6)
[2018-08-22 04:55] LABS: CHLORIDE 113 mEq/L (98-107)
[2018-08-22] MEDS ORDERED: VANCOMYCIN 1 G PREMIX 200 ML IV SCH (05:15)
[2018-08-22] MEDS ORDERED: KETOROLAC 30MG/ML VIAL IV ONE (06:15)
[2018-08-22] MEDS ORDERED: ONDANSETRON HCL 4MG/2ML INJ IV ONE (08:15)
[2018-08-22] MEDS ORDERED: MORPHINE SULFATE 4 MG/ML CPJ (NOT FOR IM USE) IV ONE (08:15)
[2018-08-22 09:29] VITALS: BP 154/83
[2018-08-22] MEDS ORDERED: MORPHINE SULFATE 4 MG/ML CPJ (NOT FOR IM USE) IV NR (10:15)
[2018-08-22 12:00] VITALS: BP 159/86
[2018-08-22] MEDS ORDERED: ACETAMINOPHEN 325MG TABLET PO PRN (12:15)
[2018-08-22] MEDS ORDERED: IPRATROPIUM/ALBUTEROL 0.5-3(2.5)MG/3ML NEB INH PRN (12:15)
[2018-08-22] MEDS ORDERED: CLONIDINE 0.1MG TABLET PO PRN (12:15)
[2018-08-22] MEDS: HYDROMORPHONE HCL/PF 2MG/ML CPJ IV PRN ×4 (12:25→22:00)
[2018-08-22] MEDS: ENOXAPARIN 40MG/0.4ML SYR SUBCUT SCH (12:53)
[2018-08-22] MEDS: DIPHENHYDRAMINE 25MG CAPSULE PO PRN ×2 (14:02→20:16)
[2018-08-22 20:05] VITALS: BP 122/71
[2018-08-22] MEDS: HYDROCODONE/APAP 7.5/325MG 1 TAB TABLET PO PRN (20:18)
[2018-08-23] VITALS: BP 135/63
[2018-08-23] MEDS: HYDROMORPHONE HCL/PF 2MG/ML CPJ IV PRN ×6 (02:23→20:05)
[2018-08-23] MEDS: DIPHENHYDRAMINE 25MG CAPSULE PO PRN ×3 (02:23→16:13)
[2018-08-23 04:00] VITALS: BP 122/71
[2018-08-23 07:23] LABS: BASOPHILS % 0.9 % (0.0-2.0); EOSINOPHILS % 3.3 % (0.0-5.0); HEMOGLOBIN. 9.7 g/dL (12.0-16.0); LYMPHOCYTES % 36.8 % (20.0-50.0); MEAN CORPUSCULAR HEMOGLOBIN 30.9 pg (28.0-32.0); MEAN CORPUSCULAR VOLUME 95.1 fL (81.0-99.0); MEAN PLATELET VOLUME 9.2 fl (7.4-10.4); MONOCYTES % 8.4 % (2.0-8.0); NEUTROPHILS % 50.6 % (40.0-76.0); PLATELET 254 x1000/uL (130-400); RED BLOOD CELL COUNT 3.15 mill/uL (4.2-5.4); RED CELL DISTRIBUTION WIDTH 16.2 % (11.6-14.6)
[2018-08-23 08:00] VITALS: BP 144/73
[2018-08-23] MEDS: ENOXAPARIN 40MG/0.4ML SYR SUBCUT SCH (08:07)
[2018-08-23 08:26] LABS: CHLORIDE 110 mEq/L (98-107)
[2018-08-23 08:41] LABS: T4 FREE 1.08 ng/dL (0.76-1.46)
[2018-08-23 08:51] LABS: LDL CHOLESTEROL 62 mg/dL (5-100)
[2018-08-23 08:52] LABS: HDL CHOLESTEROL 61 mg/dL (40-59)
[2018-08-23 16:00] VITALS: BP_SYST 100; BP_SYST 156; BP_DIAS 55; BP_DIAS 88
[2018-08-23] MEDS: HYDROCODONE/APAP 7.5/325MG 1 TAB TABLET PO PRN ×2 (16:12→22:11)
[2018-08-23] MEDS ORDERED: TEMAZEPAM 15MG CAPSULE PO PRN (19:45)
[2018-08-23 20:00] VITALS: BP 137/64
[2018-08-24] VITALS (7 sets, daily range): BP systolic 97–169; BP diastolic 55–98
[2018-08-24] MEDS: HYDROMORPHONE HCL/PF 2MG/ML CPJ IV PRN ×5 (01:37→22:55)
[2018-08-24] MEDS: DIPHENHYDRAMINE 25MG CAPSULE PO PRN ×3 (03:50→20:18)
[2018-08-24] MEDS: HYDROCODONE/APAP 7.5/325MG 1 TAB TABLET PO PRN ×2 (06:25→17:48)
[2018-08-24] MEDS: ENOXAPARIN 40MG/0.4ML SYR SUBCUT SCH (09:00)
[2018-08-24] MEDS ORDERED: LIDOCAINE HCL 1% 20ML VIAL (Pyxis) INJ ONE (12:14)
[2018-08-24] MEDS ORDERED: IODIXANOL 320MG/ML 200ML BOTTLE ONE (12:14)
[2018-08-24] MEDS ORDERED: MIDAZOLAM HCL 2 MG/2 ML VIAL ONE (12:26)
[2018-08-24] MEDS ORDERED: FENTANYL CITRATE/PF 50MCG/ML 2ML VIAL ONE ×2 (12:27→13:52)
[2018-08-24] MEDS ORDERED: PROPOFOL 10MG/ML 100ML 100 ML IV ONE (12:43)
[2018-08-24] MEDS ORDERED: HEPARIN 1000 UNITS/ML 10ML ONE (12:59)
[2018-08-24] MEDS ORDERED: DIPHENHYDRAMINE 50MG/ML VIAL ONE (13:16)
[2018-08-24] MEDS ORDERED: HYDRALAZINE 20MG/ML VIAL ONE (13:46)
[2018-08-24] MEDS ORDERED: ACETAMINOPHEN 325MG TABLET PO PRN (14:00)
[2018-08-24] MEDS ORDERED: ATROPINE SULFATE 1MG/10ML SYR IV PRN (14:00)
[2018-08-24] MEDS ORDERED: FENTANYL CITRATE/PF 50MCG/ML 2ML VIAL IV PRN (14:15)
[2018-08-24] MEDS ORDERED: ONDANSETRON HCL 4MG/2ML INJ IV PRN (14:15)
[2018-08-24] MEDS ORDERED: HYDROMORPHONE HCL/PF 2MG/ML CPJ IV PRN (14:15)
[2018-08-24] MEDS ORDERED: HYDROMORPHONE HCL/PF 2MG/ML CPJ IV STA (14:37)
[2018-08-24] MEDS ORDERED: HYDROCODONE/ACETAMINOPHEN 5/325MG TABLET PO PRN (15:15)
[2018-08-24] MEDS: AMLODIPINE 5MG TABLET PO SCH ×2 (15:40→21:23)
[2018-08-24] MEDS: HYDRALAZINE HCL 25MG TABLET PO SCH (21:24)
[2018-08-24] MEDS: TEMAZEPAM 15MG CAPSULE PO PRN (23:17)
[2018-08-25] VITALS (9 sets, daily range): BP systolic 106–134; BP diastolic 16–68
[2018-08-25] MEDS: HYDROCODONE/APAP 7.5/325MG 1 TAB TABLET PO PRN ×5 (00:50→22:28)
[2018-08-25] MEDS: HYDROMORPHONE HCL/PF 2MG/ML CPJ IV PRN ×5 (04:01→23:43)
[2018-08-25] MEDS: HYDRALAZINE HCL 25MG TABLET PO SCH ×3 (05:52→21:53)
[2018-08-25 06:17] LABS: BASOPHILS % 0.3 % (0.0-2.0); EOSINOPHILS % 2.5 % (0.0-5.0); HEMATOCRIT. 30.6 % (36.0-48.0); HEMOGLOBIN. 10.2 g/dL (12.0-16.0); LYMPHOCYTES % 25.9 % (20.0-50.0); MEAN CORPUSCULAR HEMOGLOBIN 31.2 pg (28.0-32.0); MEAN CORPUSCULAR VOLUME 93.6 fL (81.0-99.0); MEAN PLATELET VOLUME 9.3 fl (7.4-10.4); MONOCYTES % 9.2 % (2.0-8.0); NEUTROPHILS % 62.1 % (40.0-76.0); PLATELET 260 x1000/uL (130-400); RED BLOOD CELL COUNT 3.27 mill/uL (4.2-5.4); RED CELL DISTRIBUTION WIDTH 16.1 % (11.6-14.6)
[2018-08-25 06:35] LABS: CHLORIDE 104 mEq/L (98-107)
[2018-08-25] MEDS: ENOXAPARIN 40MG/0.4ML SYR SUBCUT SCH (08:16)
[2018-08-25] MEDS: AMLODIPINE 5MG TABLET PO SCH ×2 (08:17→20:13)
[2018-08-25] MEDS ORDERED: LIDOCAINE HCL 1% 20ML VIAL (Pyxis) INJ ONE (08:32)
[2018-08-25] MEDS: DIPHENHYDRAMINE 25MG CAPSULE PO PRN (21:53)
[2018-08-25] MEDS: TEMAZEPAM 15MG CAPSULE PO PRN (23:18)
[2018-08-26] VITALS (8 sets, daily range): BP systolic 96–138; BP diastolic 59–77
[2018-08-26] MEDS: DEXT 5%/0.45% NACL 1000ML 1,000 ML IV SCH ×2 (00:21→20:42)
[2018-08-26] MEDS: HYDROMORPHONE HCL/PF 2MG/ML CPJ IV PRN ×7 (02:44→22:25)
[2018-08-26] MEDS: HYDRALAZINE HCL 25MG TABLET PO SCH ×3 (06:00→22:00)
[2018-08-26 07:01] LABS: PROTHROMBIN TIME 10.3 sec (9.6-11.0)
[2018-08-26 07:07] LABS: CHLORIDE 105 mEq/L (98-107)
[2018-08-26 07:13] LABS: HEMATOCRIT 30.5 % (36.0-48.0); MEAN CORPUSCULAR VOLUME 94.4 fL (81.0-99.0); PLATELET 258 x1000/uL (130-400); RED BLOOD CELL COUNT 3.23 mill/uL (4.2-5.4); RED CELL DISTRIBUTION WIDTH 16.5 % (11.6-14.6)
[2018-08-26] MEDS: AMLODIPINE 5MG TABLET PO SCH ×2 (08:08→22:24)
[2018-08-26] MEDS: ENOXAPARIN 40MG/0.4ML SYR SUBCUT SCH (08:08)
[2018-08-26] MEDS ORDERED: DIPHENHYDRAMINE 25MG CAPSULE PO PRN (11:45)
[2018-08-26] MEDS ORDERED: THROMBIN (BOVINE) 5000 UNITS/VIAL TOP ONE (13:35)
[2018-08-26] MEDS ORDERED: LIDOCAINE HCL 1% 20ML VIAL (Pyxis) INJ ONE ×2 (13:35→14:12)
[2018-08-26] MEDS ORDERED: BUPIVACAINE HCL/PF 0.5% (5MG/ML) 10ML ONE (13:36)
[2018-08-26] MEDS ORDERED: HEPARIN SODIUM 1,000 UNIT/1ML VIAL IV ONE (13:36)
[2018-08-26] MEDS ORDERED: FENTANYL CITRATE/PF 50MCG/ML 2ML VIAL ONE ×2 (14:11→14:48)
[2018-08-26] MEDS ORDERED: SUCCINYLCHOLINE CHLORIDE 200MG/10ML IV ONE (14:12)
[2018-08-26] MEDS ORDERED: GLYCOPYRROLATE 0.2 MG/ML 2ML VIAL ONE (14:12)
[2018-08-26] MEDS ORDERED: METOCLOPRAMIDE HCL 10MG/2ML VIAL ONE (14:12)
[2018-08-26] MEDS ORDERED: MIDAZOLAM HCL 2 MG/2 ML VIAL ONE (14:12)
[2018-08-26] MEDS ORDERED: ONDANSETRON HCL 4MG/2ML INJ ONE (14:12)
[2018-08-26] MEDS ORDERED: PROPOFOL 200MG/20ML VIAL IV ONE ×2 (14:12→14:55)
[2018-08-26] MEDS ORDERED: ALBUMIN HUMAN 12.5G/250ML (5%) IV ONE (14:40)
[2018-08-26] MEDS ORDERED: HEPARIN 5000 UNITS/ML VIAL ONE (14:45)
[2018-08-26] MEDS ORDERED: EPHEDRINE SULFATE 50MG/ML VIAL ONE (15:34)
[2018-08-26] MEDS ORDERED: SODIUM CHLORIDE 0.9% 10ML VIAL ONE ×2 (15:34→17:04)
[2018-08-26] MEDS ORDERED: HEPARIN 1000 UNITS/ML 10ML ONE (15:38)
[2018-08-26] MEDS ORDERED: ONDANSETRON HCL 4MG/2ML INJ IV PRN (15:45)
[2018-08-26] MEDS ORDERED: LABETALOL HCL 20MG/4ML CARPUJECT IV PRN (15:45)
[2018-08-26] MEDS ORDERED: MEPERIDINE HCL/PF 25MG/ML CPJ IV PRN (15:45)
[2018-08-26] MEDS ORDERED: MONTELUKAST SODIUM 10MG TABLET PO SCH (17:00)
[2018-08-26] MEDS ORDERED: HYDROMORPHONE HCL/PF 2MG/ML (OR) ONE (17:04)
[2018-08-26] MEDS: TEMAZEPAM 15MG CAPSULE PO PRN (22:24)
[2018-08-27] VITALS (13 sets, daily range): BP systolic 103–131; BP diastolic 27–88
[2018-08-27] MEDS: HYDROCODONE/APAP 7.5/325MG 1 TAB TABLET PO PRN ×2 (00:47→05:33)
[2018-08-27] MEDS: HYDROMORPHONE HCL/PF 2MG/ML CPJ IV PRN ×2 (03:16→07:51)
[2018-08-27] MEDS: HYDRALAZINE HCL 25MG TABLET PO SCH ×3 (06:00→22:00)
[2018-08-27] MEDS: ENOXAPARIN 40MG/0.4ML SYR SUBCUT SCH (08:16)
[2018-08-27] MEDS: AMLODIPINE 5MG TABLET PO SCH ×2 (08:16→21:00)
[2018-08-27] MEDS ORDERED: DIPHENHYDRAMINE INJ IV PRN ×2 (08:30→10:30)
[2018-08-27] MEDS ORDERED: NALOXONE INJ IV PRN ×2 (08:30→10:30)
[2018-08-27] MEDS ORDERED: ONDANSETRON INJ IV PRN ×2 (08:30→10:30)
[2018-08-27 08:51] LABS: HEMATOCRIT 27.1 % (36.0-48.0); HEMOGLOBIN 8.8 g/dL (12.0-16.0); MEAN CORPUSCULAR HEMOGLOBIN 30.7 pg (28.0-32.0); MEAN CORPUSCULAR VOLUME 94.3 fL (81.0-99.0); PLATELET 216 x1000/uL (130-400); RED BLOOD CELL COUNT 2.87 mill/uL (4.2-5.4); RED CELL DISTRIBUTION WIDTH 16.2 % (11.6-14.6)
[2018-08-27 09:15] LABS: CHLORIDE 104 mEq/L (98-107)
[2018-08-27] MEDS ORDERED: DEXTROSE 5% WATER 1,000 ML IV PRN (10:00)
[2018-08-27] MEDS ORDERED: HYDROMORPHONE PCA 10MG/50ML IV PRN (10:30)
[2018-08-27] MEDS: HYDROMORPHONE PCA 10MG/50ML IV PRN (11:23)
[2018-08-27] MEDS: TEMAZEPAM 15MG CAPSULE PO PRN (20:45)
[2018-08-28] VITALS (12 sets, daily range): BP systolic 107–138; BP diastolic 54–97
[2018-08-28] MEDS: HYDRALAZINE HCL 25MG TABLET PO SCH ×3 (06:00→21:01)
[2018-08-28] MEDS: AMLODIPINE 5MG TABLET PO SCH ×2 (08:13→21:01)
[2018-08-28] MEDS: ENOXAPARIN 40MG/0.4ML SYR SUBCUT SCH (08:14)
[2018-08-28] MEDS: HYDROMORPHONE PCA 10MG/50ML IV PRN (09:33)
[2018-08-28 10:41] LABS: HEMATOCRIT 27.2 % (36.0-48.0); HEMOGLOBIN 9.1 g/dL (12.0-16.0); MEAN CORPUSCULAR HEMOGLOBIN 31.4 pg (28.0-32.0); MEAN CORPUSCULAR VOLUME 93.8 fL (81.0-99.0); PLATELET 237 x1000/uL (130-400); RED CELL DISTRIBUTION WIDTH 15.7 % (11.6-14.6)
[2018-08-28 10:46] LABS: CHLORIDE 105 mEq/L (98-107)
[2018-08-28] MEDS ORDERED: TEMAZEPAM 15MG CAPSULE PO PRN (12:30)
[2018-08-28] MEDS: DOCUSATE SODIUM 100MG CAPSULE PO SCH ×2 (13:11→17:00)
[2018-08-28] MEDS ORDERED: DULOXETINE HCL 30MG DR CAPSULE PO ONE (13:45)
[2018-08-28] MEDS: HYDROMORPHONE HCL/PF 2MG/ML CPJ IV PRN ×2 (15:44→19:53)
[2018-08-28 19:26] LABS: CLARITY URINE CLEAR (CLEAR); COLOR URINE YELLOW (YELLOW); KETONES URINE NEGATIVE (NEGATIVE); LEUKOCYTE ESTERASE URINE NEGATIVE (NEGATIVE); NITRITE URINE NEGATIVE (NEGATIVE); OCCULT BLOOD URINE NEGATIVE (NEGATIVE); PH URINE 5.5 (4.5-8.0); PROTEIN URINE NEGATIVE (NEGATIVE); SPECIFIC GRAVITY URINE 1.018 (1.005-1.030); UROBILINOGEN URINE 0.2 E.U./dL (0.2-1.0)
[2018-08-29] VITALS (12 sets, daily range): BP systolic 110–139; BP diastolic 35–75
[2018-08-29] MEDS: HYDROMORPHONE HCL/PF 2MG/ML CPJ IV PRN ×6 (00:57→22:39)
[2018-08-29] MEDS: DIPHENHYDRAMINE 25MG CAPSULE PO PRN ×3 (01:56→23:40)
[2018-08-29] MEDS: HYDRALAZINE HCL 25MG TABLET PO SCH ×3 (05:58→22:39)
[2018-08-29 06:38] LABS: HEMATOCRIT 25.6 % (36.0-48.0); HEMOGLOBIN 8.6 g/dL (12.0-16.0); MEAN CORPUSCULAR HEMOGLOBIN 31.4 pg (28.0-32.0); MEAN CORPUSCULAR VOLUME 93.2 fL (81.0-99.0); PLATELET 222 x1000/uL (130-400); RED BLOOD CELL COUNT 2.75 mill/uL (4.2-5.4); RED CELL DISTRIBUTION WIDTH 15.4 % (11.6-14.6)
[2018-08-29 07:24] LABS: CHLORIDE 103 mEq/L (98-107)
[2018-08-29] MEDS: DOCUSATE SODIUM 100MG CAPSULE PO SCH ×2 (08:56→16:33)
[2018-08-29] MEDS: DULOXETINE HCL 30MG DR CAPSULE PO SCH (08:56)
[2018-08-29] MEDS: AMLODIPINE 5MG TABLET PO SCH ×2 (08:58→20:53)
[2018-08-29] MEDS: ENOXAPARIN 40MG/0.4ML SYR SUBCUT SCH (08:59)
[2018-08-29] MEDS ORDERED: LIDOCAINE HCL 4% CREAM 76GM TUBE TP SCH (12:00)
[2018-08-29] MEDS ORDERED: LIDOCAINE HCL 1% 20ML VIAL (Pyxis) INJ INFIL SCH (12:00)
[2018-08-30] VITALS: BP 114/56
[2018-08-30] MEDS: HYDROMORPHONE HCL/PF 2MG/ML CPJ IV PRN ×4 (03:43→17:21)
[2018-08-30 04:00] VITALS: BP 115/61
[2018-08-30] MEDS: HYDRALAZINE HCL 25MG TABLET PO SCH ×2 (05:45→13:35)
[2018-08-30] MEDS: DIPHENHYDRAMINE 25MG CAPSULE PO PRN ×2 (06:37→12:48)
[2018-08-30 08:00] VITALS: BP 115/66
[2018-08-30] MEDS: DOCUSATE SODIUM 100MG CAPSULE PO SCH ×2 (08:28→17:19)
[2018-08-30] MEDS: DULOXETINE HCL 30MG DR CAPSULE PO SCH (08:28)
[2018-08-30] MEDS: AMLODIPINE 5MG TABLET PO SCH (08:30)
[2018-08-30] MEDS: ENOXAPARIN 40MG/0.4ML SYR SUBCUT SCH (08:30)
[2018-08-30 16:00] VITALS: BP 134/70
[2018-08-30 16:33] VITALS: BP 122/62
[2018-08-30 20:00] VITALS: BP 118/66
== END 2018-08-30 21:21 | DRG 463 ==
LOC: ER 00:51 → 8WST 06:09 → ENRESERV 08:06 → 3WST 08-24 15:36 → 8WST 08-29 23:20
PROVIDERS: ADMIT Internal Medicine; ATTEND Internal Medicine
PROC: B41D1ZZ Fluoroscopy of Aorta and Bilateral Lower Extremity Arteries using Low Osmolar Contrast (ICD-10-PCS; principal; 2018-08-24)
PROC: B41F1ZZ Fluoroscopy of Right Lower Extremity Arteries using Low Osmolar Contrast (ICD-10-PCS; 2018-08-24)
PROC: 0JBQ0ZZ Excision of Right Foot Subcutaneous Tissue and Fascia, Open Approach (ICD-10-PCS; 2018-08-26)
PROC: 0JBN0ZZ Excision of Right Lower Leg Subcutaneous Tissue and Fascia, Open Approach (ICD-10-PCS; 2018-08-26)
PROC: 041H0JQ Bypass Right External Iliac Artery to Lower Extremity Artery with Synthetic Substitute, Open Approach (ICD-10-PCS; 2018-08-26)
DX: T87.81 Dehiscence of amputation stump (principal); I50.33 Acute on chronic diastolic (congestive) heart failure; J44.1 Chronic obstructive pulmonary disease with (acute) exacerbation; F11.20 Opioid dependence, uncomplicated; I96 Gangrene, not elsewhere classified; M86.9 Osteomyelitis, unspecified; G93.40 Encephalopathy, unspecified; I69.354 Hemiplegia and hemiparesis following cerebral infarction affecting left non-dominant side; G62.9 Polyneuropathy, unspecified; D64.9 Anemia, unspecified; E78.00 Pure hypercholesterolemia, unspecified; E78.5 Hyperlipidemia, unspecified; F17.210 Nicotine dependence, cigarettes, uncomplicated; I11.0 Hypertensive heart disease with heart failure; I70.201 Unspecified atherosclerosis of native arteries of extremities, right leg; F41.9 Anxiety disorder, unspecified; M19.90 Unspecified osteoarthritis, unspecified site; K21.9 Gastro-esophageal reflux disease without esophagitis; Y83.8 Other surgical procedures as the cause of abnormal reaction of the patient, or of later complication, without mention of misadventure at the time of the procedure; R26.9 Unspecified abnormalities of gait and mobility; Z87.440 Personal history of urinary (tract) infections; Z91.19 Patient's noncompliance with other medical treatment and regimen; Z95.828 Presence of other vascular implants and grafts; Z88.0 Allergy status to penicillin; Z88.1 Allergy status to other antibiotic agents; Z88.8 Allergy status to other drugs, medicaments and biological substances; Z79.899 Other long term (current) drug therapy
CPT/HCPCS: 36246; 36415; 36569; 36573; 71045; 75710; 80048; 80061; 82550; 84439; 84443; 84484; 85027; 93005; 93971; 96365; 96366; 96375; 96376; 97162; 99285; A4565; C1725; C1760; C1768; C1769; C1887; C1893; C1894; J0330; J0360; J1170; J1200; J1644; J1650; J1885; J2250; J2270; J2405; J2704; J2765; J3010; J3370; J3490; J7040; J7050; J7070; P9041; Q0163; Q9967

== ENCOUNTER → 2018-10-12 | Outpatient (CLI) | payer OTHER, MEDICAID | END | disposition home or self-care (01) | LOC: RAD 13:29 | PROVIDERS: ATTEND Internal Medicine Nephrology | DX: Z45.2 Encounter for adjustment and management of vascular access device (principal); Z79.899 Other long term (current) drug therapy; Z88.0 Allergy status to penicillin; Z88.8 Allergy status to other drugs, medicaments and biological substances; Z82.49 Family history of ischemic heart disease and other diseases of the circulatory system; Z80.8 Family history of malignant neoplasm of other organs or systems | CPT/HCPCS: 36573; C1725; C1751; C1769; 36569 ==

== ENCOUNTER 2018-10-28 04:08 | Emergency (ER) | payer OTHER, MEDICAID ==
[~2018-10-28] VITALS: Ht 157.5 cm; Wt 46.0 kg
[2018-10-28] MEDS ORDERED: HYDROCODONE/ACETAMINOPHEN 5/325MG TABLET PO ONE (04:30)
[2018-10-28 05:30] VITALS: BP 118/65
== END 2018-10-28 05:39 | disposition home or self-care (01) ==
LOC: ER 04:08
DX: M79.671 Pain in right foot (principal); I10 Essential (primary) hypertension; F17.200 Nicotine dependence, unspecified, uncomplicated; Z98.890 Other specified postprocedural states; Z79.899 Other long term (current) drug therapy; Z88.0 Allergy status to penicillin; Z88.1 Allergy status to other antibiotic agents; Z88.8 Allergy status to other drugs, medicaments and biological substances
CPT/HCPCS: 99283

== ENCOUNTER 2019-11-14 18:20 | Emergency (ER) | payer OTHER, MEDICAID ==
[~2019-11-14] VITALS: Ht 165.1 cm; Wt 70.0 kg
[2019-11-14 18:58] VITALS: BP 154/77
[2019-11-14] MEDS ORDERED: DIPHENHYDRAMINE 50MG/ML VIAL IM ONE (19:00)
[2019-11-14] MEDS ORDERED: FAMOTIDINE 20MG TABLET PO ONE (19:00)
[2019-11-14] MEDS ORDERED: METHYLPREDNISOLONE SOD SUCC 125 MG/2 ML VIAL IM ONE (19:00)
== END 2019-11-14 19:38 | disposition left against medical advice (07) ==
LOC: ER 18:20
DX: T78.1XXA Other adverse food reactions, not elsewhere classified, initial encounter (principal); I10 Essential (primary) hypertension; F17.200 Nicotine dependence, unspecified, uncomplicated; Z88.8 Allergy status to other drugs, medicaments and biological substances; Z88.6 Allergy status to analgesic agent; Z88.0 Allergy status to penicillin; Z79.899 Other long term (current) drug therapy; X58.XXXA Exposure to other specified factors, initial encounter
CPT/HCPCS: 96372; 99284; J1200; J2930

== ENCOUNTER 2019-11-14 22:40 | Emergency (ER) | payer OTHER, MEDICAID ==
[~2019-11-14] VITALS: Ht 160 cm; Wt 60.0 kg
[2019-11-14] MEDS ORDERED: FAMOTIDINE 20MG/2ML VIAL IV ONE (23:15)
[2019-11-14] MEDS ORDERED: DEXAMETHASONE 10 MG/ML VIAL IV ONE (23:15)
[2019-11-14] MEDS ORDERED: DIPHENHYDRAMINE 50MG/ML VIAL IV ONE (23:15)
[2019-11-15 04:19] VITALS: BP 157/67
== END 2019-11-15 04:39 | disposition home or self-care (01) ==
LOC: ER 22:40
DX: T78.1XXA Other adverse food reactions, not elsewhere classified, initial encounter (principal); R22.0 Localized swelling, mass and lump, head; I10 Essential (primary) hypertension; X58.XXXA Exposure to other specified factors, initial encounter
CPT/HCPCS: 96374; 96375; 99285; J1100; J1200; J3490

== ENCOUNTER 2019-11-16 15:38 | Inpatient (IN) | payer OTHER, MEDICAID ==
[~2019-11-16] VITALS: Ht 154.9 cm; Wt 60.3 kg
[2019-11-16 17:04] LABS: CLARITY URINE CLEAR (CLEAR); COLOR URINE YELLOW (YELLOW); KETONES URINE NEGATIVE (NEGATIVE); LEUKOCYTE ESTERASE URINE NEGATIVE (NEGATIVE); NITRITE URINE NEGATIVE (NEGATIVE); OCCULT BLOOD URINE NEGATIVE (NEGATIVE); PH URINE 6.5 (4.5-8.0); PROTEIN URINE NEGATIVE (NEGATIVE); SPECIFIC GRAVITY URINE 1.007 (1.005-1.030); UROBILINOGEN URINE 0.2 E.U./dL (0.2-1.0)
[2019-11-16 17:07] LABS: CHLORIDE 106 mEq/L (98-107)
[2019-11-16 17:11] LABS: ETHANOL BLOOD 62 mg/dL
[2019-11-16 17:14] LABS: LDL CHOLESTEROL 69 mg/dL (5-100); PROTHROMBIN TIME 10.4 sec (9.6-11.0)
[2019-11-16] MEDS ORDERED: FAMOTIDINE 20MG TABLET PO ONE (17:15)
[2019-11-16] MEDS ORDERED: DIPHENHYDRAMINE 25MG CAPSULE PO ONE (17:15)
[2019-11-16] MEDS ORDERED: METHYLPREDNISOLONE SOD SUCC 125 MG/2 ML VIAL IV ONE (17:15)
[2019-11-16 17:20] LABS: *AMPHETAMINES SCREEN URINE NEGATIVE (NEGATIVE); *BARBITURATES SCREEN URINE NEGATIVE (NEGATIVE); *BENZODIAZEPINES SCREEN URINE NEGATIVE (NEGATIVE)
[2019-11-16 17:21] LABS: *COCAINE SCREEN URINE NEGATIVE (NEGATIVE); CANNABINOID URINE SCREEN NEGATIVE (NEGATIVE); METHADONE URINE SCREEN NEGATIVE (NEGATIVE); OPIATES URINE SCREEN NEGATIVE (NEGATIVE); PHENCYCLIDINE URINE SCREEN NEGATIVE (NEGATIVE)
[2019-11-16 17:24] LABS: BASOPHILS % 0.5 % (0.0-2.0); EOSINOPHILS % 0.9 % (0.0-5.0); HEMATOCRIT. 40.3 % (36.0-48.0); MEAN CORPUSCULAR HEMOGLOBIN 34.4 pg (28.0-32.0); MEAN CORPUSCULAR VOLUME 99.4 fL (81.0-99.0); MEAN PLATELET VOLUME 10.8 fl (7.4-10.4); MONOCYTES % 5.1 % (2.0-8.0); NEUTROPHILS % 47.5 % (40.0-76.0); PLATELET 168 x1000/uL (130-400); RED BLOOD CELL COUNT 4.06 mill/uL (4.2-5.4)
[2019-11-16] MEDS ORDERED: IOHEXOL-350 100 ML BOTTLE ONE (17:46)
[2019-11-16] MEDS ORDERED: ASPIRIN 81MG TABLET PO ONE (19:30)
[2019-11-16 23:44] VITALS: BP 149/75
[2019-11-17] VITALS (7 sets, daily range): BP systolic 137–168; BP diastolic 66–93
[2019-11-17] MEDS ORDERED: POTASSIUM CHLORIDE 20MEQ TABLET SR PO NR (01:30)
[2019-11-17] MEDS: HYDROCODONE/ACETAMINOPHEN 5/325MG TABLET PO PRN ×3 (02:02→16:11)
[2019-11-17] MEDS: DIPHENHYDRAMINE 50MG/ML VIAL IV PRN ×3 (03:33→17:02)
[2019-11-17 07:01] LABS: CHLORIDE 109 mEq/L (98-107)
[2019-11-17 07:08] LABS: LDL CHOLESTEROL 70 mg/dL (5-100)
[2019-11-17 07:10] LABS: CREATINE KINASE 99 IU/L (26-192); CREATINE KINASE MB FRACTION 1.4 ng/mL (0.5-3.6)
[2019-11-17 07:11] LABS: HDL CHOLESTEROL 107 mg/dL (40-59)
[2019-11-17] MEDS: PANTOPRAZOLE 40MG DR TABLET PO SCH (08:56)
[2019-11-17] MEDS: ENOXAPARIN 40MG/0.4ML SYR SUBCUT SCH (08:56)
[2019-11-17 10:08] LABS: BASOPHILS % 0.1 % (0.0-2.0); HEMOGLOBIN. 12.8 g/dL (12.0-16.0); LYMPHOCYTES % 21.1 % (20.0-50.0); MEAN CORPUSCULAR HEMOGLOBIN 33.4 pg (28.0-32.0); MEAN CORPUSCULAR VOLUME 99.2 fL (81.0-99.0); MEAN PLATELET VOLUME 10.7 fl (7.4-10.4); MONOCYTES % 2.6 % (2.0-8.0); NEUTROPHILS % 76.2 % (40.0-76.0); PLATELET 160 x1000/uL (130-400); RED BLOOD CELL COUNT 3.83 mill/uL (4.2-5.4); RED CELL DISTRIBUTION WIDTH 15.7 % (11.6-14.6)
[2019-11-17] MEDS: ASPIRIN 81MG TABLET PO SCH (11:31)
[2019-11-17 15:40] LABS: CREATINE KINASE MB FRACTION 1.2 ng/mL (0.5-3.6)
[2019-11-17] MEDS ORDERED: ONDANSETRON HCL 4MG/2ML INJ IV PRN (17:00)
[2019-11-17] MEDS ORDERED: IPRATROPIUM/ALBUTEROL 0.5-3(2.5)MG/3ML NEB HHN PRN (17:00)
[2019-11-17] MEDS ORDERED: ACETAMINOPHEN 325MG TABLET PO PRN (17:00)
[2019-11-17] MEDS ORDERED: HYDRALAZINE 20MG/ML VIAL IV PRN (17:00)
[2019-11-17] MEDS ORDERED: ACETAMINOPHEN 650MG SUPP PR PRN (17:00)
[2019-11-17] MEDS ORDERED: DIPHENHYDRAMINE 50MG/ML VIAL IV PRN (17:00)
[2019-11-17] MEDS ORDERED: LACTULOSE 20G/30ML UDC PO PRN (21:00)
[2019-11-18] VITALS: BP 133/70
[2019-11-18] MEDS: DIPHENHYDRAMINE 50MG/ML VIAL IV PRN ×3 (00:30→22:59)
[2019-11-18] MEDS: HYDROCODONE/ACETAMINOPHEN 5/325MG TABLET PO PRN ×4 (00:36→23:00)
[2019-11-18 00:38] LABS: CREATINE KINASE 53 IU/L (26-192)
[2019-11-18 00:46] LABS: CREATINE KINASE MB FRACTION < 1.0 ng/mL (0.5-3.6)
[2019-11-18 04:00] VITALS: BP 160/82
[2019-11-18 07:46] LABS: BASOPHILS % 0.6 % (0.0-2.0); EOSINOPHILS % 0.8 % (0.0-5.0); HEMOGLOBIN. 12.5 g/dL (12.0-16.0); LYMPHOCYTES % 46.6 % (20.0-50.0); MEAN CORPUSCULAR HEMOGLOBIN 33.6 pg (28.0-32.0); MEAN CORPUSCULAR VOLUME 99.8 fL (81.0-99.0); MONOCYTES % 5.6 % (2.0-8.0); NEUTROPHILS % 46.4 % (40.0-76.0); RED BLOOD CELL COUNT 3.71 mill/uL (4.2-5.4); RED CELL DISTRIBUTION WIDTH 15.8 % (11.6-14.6)
[2019-11-18 07:48] LABS: CHLORIDE 109 mEq/L (98-107)
[2019-11-18 08:00] VITALS: BP 171/78
[2019-11-18] MEDS: ASPIRIN 81MG TABLET PO SCH (08:28)
[2019-11-18] MEDS: PANTOPRAZOLE 40MG DR TABLET PO SCH (08:28)
[2019-11-18] MEDS: ENOXAPARIN 40MG/0.4ML SYR SUBCUT SCH (08:29)
[2019-11-18 12:00] VITALS: BP 164/64
[2019-11-18 13:00] LABS: MEAN PLATELET VOLUME 11.6 fl (7.4-10.4); PLATELET 130 x1000/uL (130-400)
[2019-11-18] MEDS ORDERED: BISACODYL 10MG SUPP PR NR (13:00)
[2019-11-18 16:00] VITALS: BP 181/90
[2019-11-18] MEDS ORDERED: MAGNESIUM HYDROXIDE 400MG/5ML 30ML UDC PO PRN (17:00)
[2019-11-18] MEDS ORDERED: CLONIDINE 0.1MG TABLET PO PRN (17:15)
[2019-11-18 20:00] VITALS: BP 134/65
[2019-11-19] VITALS: BP 156/72
[2019-11-19 04:00] VITALS: BP 145/75
[2019-11-19] MEDS: HYDROCODONE/ACETAMINOPHEN 5/325MG TABLET PO PRN ×4 (05:59→22:04)
[2019-11-19] MEDS: FAMOTIDINE 20MG TABLET PO SCH ×2 (05:59→07:58)
[2019-11-19] MEDS: ASPIRIN 81MG TABLET PO SCH (07:58)
[2019-11-19] MEDS: DIPHENHYDRAMINE 50MG/ML VIAL IV PRN ×3 (07:58→22:10)
[2019-11-19 08:00] VITALS: BP 141/73
[2019-11-19] MEDS: ENOXAPARIN 40MG/0.4ML SYR SUBCUT SCH (08:32)
[2019-11-19 12:00] VITALS: BP 151/68
[2019-11-19 16:00] VITALS: BP 152/66
[2019-11-19 20:00] VITALS: BP 159/70
[2019-11-20] VITALS (7 sets, daily range): BP systolic 144–170; BP diastolic 49–87
[2019-11-20] MEDS: DIPHENHYDRAMINE 50MG/ML VIAL IV PRN ×2 (04:20→10:02)
[2019-11-20] MEDS: HYDROCODONE/ACETAMINOPHEN 5/325MG TABLET PO PRN ×2 (04:20→10:03)
[2019-11-20] MEDS: ENOXAPARIN 40MG/0.4ML SYR SUBCUT SCH (08:15)
[2019-11-20] MEDS: ASPIRIN 81MG TABLET PO SCH (08:15)
[2019-11-20] MEDS ORDERED: MONT10TA21 MT (15:26)
[2019-11-20] MEDS ORDERED: DIPH25CA83 PO (15:26)
[2019-11-20] MEDS ORDERED: FAMO-135 MT (15:26)
[2019-11-20] MEDS ORDERED: AMLO5TAB4 MT (15:26)
[2019-11-20] MEDS ORDERED: TC1C15 TP (15:26)
== END 2019-11-20 17:49 | disposition home or self-care (01) | DRG 896 ==
LOC: ER 15:38 → MICUSO 19:27 → 8WST 21:59
PROVIDERS: ADMIT Internal Medicine; ATTEND Internal Medicine
DX: F10.129 Alcohol abuse with intoxication, unspecified (principal); I50.33 Acute on chronic diastolic (congestive) heart failure; G92 Toxic encephalopathy; F11.20 Opioid dependence, uncomplicated; I69.354 Hemiplegia and hemiparesis following cerebral infarction affecting left non-dominant side; Y90.3 Blood alcohol level of 60-79 mg/100 ml; I73.9 Peripheral vascular disease, unspecified; J44.9 Chronic obstructive pulmonary disease, unspecified; I11.0 Hypertensive heart disease with heart failure; M19.90 Unspecified osteoarthritis, unspecified site; R79.89 Other specified abnormal findings of blood chemistry; D64.9 Anemia, unspecified; E78.1 Pure hyperglyceridemia; E78.5 Hyperlipidemia, unspecified; F17.210 Nicotine dependence, cigarettes, uncomplicated; Z86.14 Personal history of Methicillin resistant Staphylococcus aureus infection; Z91.19 Patient's noncompliance with other medical treatment and regimen; Z88.1 Allergy status to other antibiotic agents; Z88.8 Allergy status to other drugs, medicaments and biological substances; Z88.0 Allergy status to penicillin; Z89.431 Acquired absence of right foot; Z71.6 Tobacco abuse counseling
CPT/HCPCS: 36415; 70496; 70498; 70551; 71045; 80048; 80053; 80061; 80305; 80320; 81003; 82550; 82553; 83721; 84484; 85025; 93005; 97162; 99285; J0360; J1200; J1650; J2930; Q0163; Q9967; G0480